=== PATIENT | male | born 1930 | race Caucasian/White ===

== ENCOUNTER 2017-04-21 17:11 | Inpatient (IN) ==
[2017-04-21 17:46] VITALS: BMI 25.8
[2017-04-21] MEDS ORDERED: NS FLUSH BAG 500ml IV PRN (17:50)
--- NOTE | 2017-04-21 18:02 | History & Physical Report ---
<Sarah Spain V - Last Filed: 04/21/17 17:53> History of Present Illness Date: 04/21/17 Chief complaint: Anemia, fatigue HPI: Acosta is a pleasant 87 yr old male who presented to his PCP Dr Kaiser today for dyspnea and fatigue. 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 Outpatientn laboratory workup was completed today reveling a hemoglobin of 7.7. Last reported Hgb from 09/2016 was 12. Other lab findings included Hematocrit 23.0, MCV 109, white count 7.7, platelet count 350. Chemistry panel did reveal elevation in sodium of 148, potassium 4.5, BUN 25, creatinine 1.4. Glucose was 155. Total bilirubin is elevated at 2.8. Initial troponin at that time was negative. Pro calcitonin was obtained that was negative and a urinalysis was obtained that was negative. Chest x-ray was obtained today that showed no acute cardiopulmonary findings. CT scan of the abdomen and pelvis is performed revealing no acute abdominal process. Chronic large amount of dense gallbladder sludge is noted. The lead EKG was obtained that showed a paced cardiac rhythm. Given his symptoms of fatigue/weakness, accompanied with decrease in hemoglobin and existing comorbidities, the hospitalist services were contacted and accepted patient for outpatient admission for further evaluation and treatment. It is expected the history will be less than 2 overnights. Old records are reviewed from hospitalization at [facility] in November 2015. At that time he was initially admitted for chest pain that was thought to be related to his asthma. He was found to have a in STEMI and underwent bypass procedure under the care of Dr. Vance. He was also found to be anemic and had a hematology workup by Dr.Quoc Gomez. He was diagnosed with warm antibody hemolytic anemia. He was stabilized and has been following in the outpatient setting with both Dr. Vance and Dr. Gomez. Acosta is seen today on initial arrival to [facility]. He is alert, oriented and pleasant. He notes that he has had progressive weakness, that is generalized over the past several weeks. He also reports that for the last 3 days he has had increased shortness of breath that he attributes to humidity and known history of asthma. Denies chest pain, GI complaints, melena or hemoptysis. Last saw Dr Khalil 10 days ago and was "doing fine". Follows with Dr Vance routinely. Review of Systems Comprehensive ROS: completed and no additional positive findings except those as stated - Constitutional Constitutional: Present: fatigue, weakness (generalized) - Respiratory Respiratory: Present: dyspnea, dyspnea on exertion PFSH Autoimmune hemolytic anemia Hypertension Dyslipidemia Coronary artery disease Ischemic cardiomyopathy Diabetes Asthma Pacemaker hypertension GERD Surgical History: CABG-bypass graft 4 with sternal plating,ORTIZ to LAD & OM1, distal circ to PDA 11/13/15-Dr. Romero. Umbilical hernia repair in 2005. Pacemaker placement-2008, Dr. Pillai (complete heart block). Bilateral eye surgery. Atarax extraction of left eye-2012. Colonoscopy-2013 (Dr. Bolanos) Family History: Further-emphysema Mother-CVA, at age 67 Brother-emphysema - Social History Smoking status: Never smoker Substance use type: does not use Alcohol intake frequency: holidays/special occasions only Current residence: Apartment/Private Home Social history: Primary care provider, Dr. Sana Kaiser [employer]-Dr. Manny Vance He does see Dr. Mojgan Mcdaniel for follow-up of pacemaker only Hematology, Dr. George Gomez Medications Home Medications Medication Instructions Recorded Confirmed Type Gemfibrozil 600 mg PO BID #0 10/31/14 04/21/17 History Acetaminophen [Mapap] 2 tab PO Q4H PRN #0 tab 01/09/16 04/21/17 History Aspirin [Low Dose Aspirin EC] 1 tab PO DAILY #30 tab 01/09/16 04/21/17 History Atorvastatin Calcium 1 tab PO DAILY #0 tab 01/09/16 04/21/17 History Bisoprolol Fumarate 0.5 tab PO DAILY #0 tab 01/09/16 04/21/17 History Budesonide Flexhaler [Pulmicort 1 - 2 puff INH BID #1 inhaler 01/09/16 04/21/17 History 180 Mcgflexhaler] Cyanocobalamin (Vitamin B-12) 1 tab PO DAILY #30 tab 01/09/16 04/21/17 History [Vitamin B-12] Docusate Sodium [Doc-Q-Lace] 1 cap PO BID #0 cap 01/09/16 04/21/17 History Ferrous Gluconate 1 tab PO BIDWM #0 tab 01/09/16 04/21/17 History Folic Acid 1 tab PO DAILY #0 tab 01/09/16 04/21/17 History Ibuprofen 1 tab PO Q6H PRN #0 tab 01/09/16 04/21/17 History Omeprazole 1 cap PO DAILY #0 cap 01/09/16 04/21/17 History Albuterol Sulfate [Proair Hfa] 2 puff INH Q6H PRN 04/21/17 04/21/17 History Albuterol Sulfate [Proair Hfa] 2 puff INH Q6H PRN 04/21/17 04/21/17 History Albuterol/Ipratropium [Duoneb] 3 ml INH QID PRN 04/21/17 04/21/17 History Budesonide 1 vial AEROSOL BID 04/21/17 04/21/17 History Metformin Xr 500 mg PO WS 04/21/17 04/21/17 History Miralax 17 gm PO PRN PRN 04/21/17 04/21/17 History Allergies Allergy/AdvReac Type Severity Reaction Status Date / Time No Known Drug Allergies AdvReac Unknown Verified 04/21/17 18:19 Exam Vital Signs: Temperature 97.3 F 04/21/17 17:36 Pulse Rate 67 04/21/17 17:36 Respiratory Rate 20 04/21/17 17:36 Blood Pressure 153/71 H 04/21/17 17:36 Pulse Oximetry 100 04/21/17 17:36 Oxygen Delivery Method Room Air Height/Weight/BMI: Height 1.78 m Weight 81.6 kg Body Mass Index 25.8 - Constitutional Present: no acute distress, well nourished, well developed - Routine HEENT Exam Eye: Present: EOMI, PERRL ENT: Present: mucous membranes moist, dentition normal - Routine Neck Exam Present: full ROM - Routine Respiratory Exam Present: CTA bilaterally (anterior), diminished air movement (the lateral bases) . Absent: wheezes - Routine Cardiovascular Exam Present: RRR, S1, S2, no murmur. Absent: murmur - Routine Abdominal Exam Present: soft, normoactive bowel sounds, non distended. Absent: tenderness - Routine Extremities Exam Present: pulses intact, normal capillary refill - Routine Back/Spine/Pelvis Exam Back/Spine: Present: full ROM - Routine Skin Exam Present: intact, dry, warm - Routine Neurological Exam Present: alert, oriented X3, moving all extremities CN 3-12 intact - Routine Psychiatric Exam Present: normal affect, normal thought process Assessment and Plan (1) Hemolytic anemia Current visit: Yes Status: Acute (2) Weakness Current visit: Yes Status: Acute DVT Prophylaxis: SCD's Resuscitation Status: Do Not Resuscitate Assessment and Plan: Impression Hemolytic anemia- hemoglobin on admission 7.7 Generalized weakness/fatigue Hypernatremia- sodium on admission 148 Elevated bilirubin Dyspnea Asthma Coronary artery disease Hypertension Pacemaker Hyperlipidemia Plan Plan is to admit patient to outpatient observation under care of Dr. Wallace for hemolytic anemia, generalized weakness and dyspnea. Patient did undergo outpatient laboratory studies under the care of Dr. Kaiser today including CBC, chemistry, urinalysis, pro calcitonin, troponin and EKG which were addressed in my history of present illness. At time of admission, we will obtain the following laboratory studies, reticulocyte profile, LDH, direct Lisa, type and cross blood. We will transfuse patient with 1 unit of packed red blood cells at this time. 1/2 NS at 75 ml/ hr for gently hydration given per natremia Will obtain serial troponins every 6 hours 3 to rule out cardiac ischemia. Given known history of coronary artery disease. Monitor patient on cardiac telemetry Initiate prednisone 1 mg/KG BID starting now (80mg). Will then discuss ongoing outpatient steroid treatment at time of discharge. Will recheck CBC and BMP are morning to follow blood counts, renal function and electrolytes. Did discuss advanced directives and patient does verbalize. He wishes to be do not resuscitate Will discuss further orders and plan of care with attending, Dr. Wallace. Home medications will need to be reviewed once reconciled. At time of discharge medical care will return to primary care provider Dr. Kaiser at [facility] and Home Course Summary Disclaimer: The visit summary below is not to be considered part of the above Progress Note. Hospital Course: 04/21/17 -Admission Impression Hemolytic anemia- hemoglobin on admission 7.7 Generalized weakness/fatigue Hypernatremia- sodium on admission 148 Elevated bilirubin Dyspnea Asthma Coronary artery disease Hypertension Pacemaker Hyperlipidemia Plan Plan is to admit patient to outpatient observation under care of Dr. Wallace for hemolytic anemia, generalized weakness and dyspnea. Patient did undergo outpatient laboratory studies under the care of Dr. Kaiser today including CBC, chemistry, urinalysis, pro calcitonin, troponin and EKG which were addressed in my history of present illness. At time of admission, we will obtain the following laboratory studies, reticulocyte profile, LDH, direct Lisa, type and cross blood. We will transfuse patient with 1 unit of packed red blood cells at this time. 1/2 NS at 75 ml/ hr for gently hydration given per natremia Will obtain serial troponins every 6 hours 3 to rule out cardiac ischemia. Given known history of coronary artery disease. Monitor patient on cardiac telemetry Initiate prednisone 1 mg/KG BID starting now (80mg). Will then discuss ongoing outpatient steroid treatment at time of discharge. Will recheck CBC and BMP are morning to follow blood counts, renal function and electrolytes. Did discuss advanced directives and patient does verbalize. He wishes to be do not resuscitate Will discuss further orders and plan of care with attending, Dr. Wallace. Home medications will need to be reviewed once reconciled. At time of discharge medical care will return to primary care provider Dr. Kaiser at [facility] <Dorys Wallace - Last Filed: 04/21/17 19:52> History of Present Illness Date: 04/21/17 [facility] Patient Stated Medical History Cataracts Yes: left eye Congestive Heart Failure Yes Hypertension Yes Myocardial Infarction Yes Asthma Yes Diabetes Mellitus Type 2 Yes: diet/oral med controlled Hiatal Hernia Yes Anemia Yes: antibody sensitivity Blood Transfusions Yes: chronic anemia Exam Vital Signs: Temperature 97.3 F 04/21/17 19:40 Pulse Rate 61 04/21/17 19:40 Respiratory Rate 16 04/21/17 19:40 Blood Pressure 122/61 04/21/17 19:40 Pulse Oximetry 98 04/21/17 19:40 Oxygen Delivery Method Room Air Height/Weight/BMI: Height 1.78 m Weight 81.6 kg Body Mass Index 25.8 Assessment and Plan (1) Hemolytic anemia Current visit: Yes Status: Acute (2) Weakness Current visit: Yes Status: Acute Assessment and Plan: I have independently evaluated and examined this patient. I reviewed the chart, the patient's history, and the LEAD ETL DEVELOPER/PA's documented findings as above. We discussed and formulated the assessment and plan as above with additions as below: Mr. Oro is an 87-year-old male with a history of warm antibody AIHA identified 17 months ago as described. He's been followed by Dr. George Troung and is tapered off of prednisone (note inclusion of prednisone on current medication list is incorrect). Over the past week he's developed increasing dyspnea/tightness in his chest similar to the symptoms he experienced prior to identification of hemolytic anemia in conjunction with generalized weakness and sense of heaviness around his body. He denies wheezing, cough, fevers, or chills. Laboratory findings consistent with relapse of AIHA were obtained earlier today and the patient is hospitalized to hopefully transfuse if compatible unit of blood can be identified. Troponin was obtained with lab work earlier today and was unremarkable and EKG in the office demonstrated ventricular pacemaker with left bundle. The patient is alert and able to provide historical information which corresponds to available records and history provided by Dr. Kaiser. Skin tone/color is normal Respirations are nonlabored, good airflow, no wheezing present. Cardiac rhythm regular Abdomen soft, bowel sounds present Extremities without edema Increased MCV, decreased hemoglobin, increased bilirubin compatible with hemolytic anemia. Direct Lisa, haptoglobin, reticulocyte count and direct/indirect bilirubin being obtained in addition to type and cross. Hope to transfuse 1 unit of packed cells to minimize symptoms in conjunction with resumption of prednisone 1 mg/kg tonight and again in a.m. Discussed with Dr. Kaiser and Dr. Gomez. Records from [facility] and the office reviewed. Outpatient labs reviewed. Chest x-ray unremarkable by my review and CT abdomen/pelvis without acute pathology although biliary sludge present and unchanged from the past (CT also reviewed by myself). Patient advises me that it took 3 days to find compatible blood for transfusion during his prior hospitalization due to antibodies. Hospital Course Summary Disclaimer: The visit summary below is not to be considered part of the above Progress Note.
[2017-04-21] MEDS: 1/2 NS 1,000 ML IV SCH (19:37)
[2017-04-21] MEDS: PredniSONE 20 MG TABLET PO SCH ×2 (19:37→22:15)
[2017-04-21] MEDS ORDERED: ALBUTEROL 2.5mg/3ml (0.083%) NEB IH PRN (21:03)
[2017-04-21] MEDS ORDERED: POLYETHYL GLYCOL 3350 17gm PACKET PO PRN (21:03)
[2017-04-21] MEDS ORDERED: ACETAMINOPHEN 325 MG TABLET PO PRN (21:03)
[2017-04-21] MEDS ORDERED: DiphenhydrAMINE 25 MG CAPSULE PO PRN (21:08)
[2017-04-22] MEDS: BUDESONIDE INH.SOLN 0.5mg/2ml NEB AEROSOL SCH ×2 (07:57→19:10)
[2017-04-22] MEDS: FOLIC ACID 1 MG TABLET PO SCH (08:29)
[2017-04-22] MEDS: OMEPRAZOLE 20 MG CAPSULE PO SCH (08:29)
[2017-04-22] MEDS: FERROUS GLUCONATE 324 MG TABLET PO SCH ×2 (08:29→17:41)
[2017-04-22] MEDS: GEMFIBROZIL 600 MG TABLET PO SCH ×2 (08:29→22:10)
[2017-04-22] MEDS: ASPIRIN *EC* 81 MG TABLET PO SCH (08:29)
[2017-04-22] MEDS: DOCUSATE SODIUM 100 MG CAPSULE PO SCH ×2 (08:29→22:10)
[2017-04-22] MEDS: 1/2 NS 1,000 ML IV SCH (08:30)
[2017-04-22] MEDS: PredniSONE 20 MG TABLET PO SCH (08:30)
--- NOTE | 2017-04-22 15:31 | Progress Note ---
<Sarah Spain V - Last Filed: 04/22/17 15:23> Subjective: Acosta is seen this morning up in the chair, talking with his family at the bedside. He is alert, oriented and pleasant. He verbalizes overall his breathing seems to be improved. He denies having any pain or GI concerns. Hemoglobin this morning 7.1 with hematocrit 21.1. Continues to wait on blood transfusion. Objective Vital signs: Temperature 96.2 F L 04/22/17 11:00 Pulse Rate 61 04/22/17 11:00 Respiratory Rate 16 04/22/17 11:00 Blood Pressure 112/65 04/22/17 11:00 Pulse Oximetry 98 04/22/17 11:00 Oxygen Delivery Method Room Air Height/Weight/BMI: Height 1.78 m Weight 81.8 kg Body Mass Index 25.8 - Constitutional Present: no acute distress, well nourished, well developed - Routine HEENT Exam Head: Present: normocephalic Eye: Present: EOMI, PERRL ENT: Present: mucous membranes moist, dentition normal - Routine Respiratory Exam Present: CTA bilaterally. Absent: wheezes - Routine Cardiovascular Exam Present: RRR, S1, S2. Absent: murmur - Routine Abdominal Exam Present: soft, normoactive bowel sounds, non distended. Absent: tenderness - Routine Extremities Exam Present: no edema, normal capillary refill - Routine Back/Spine/Pelvis Exam Back/Spine: Present: full ROM - Routine Skin Exam Present: intact, dry, warm - Routine Neurological Exam Present: alert, oriented X3, CN II-XII intact - Routine Lymphatic Exam Lymphatic: Absent: adenopathy - Routine Psychiatric Exam Present: normal affect, normal thought process Results - Labs CBC & Chem 7: 04/22/17 04:35 04/22/17 04:35 Assessment and Plan (1) Hemolytic anemia Current visit: Yes Status: Acute (2) Weakness Current visit: Yes Status: Acute Assessment and Plan: 04/22/17 Overall Acosta is stale and doing well. Tach to the [place] [place] this morning and was notified that blood is being prepared and will hopefully be at [facility] later today. Plan is to transfuse 1 unit of PRBC. 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 Patient does meet criteria for inpatient status. Patient changed at this time. He continues to wait on blood transfusion that is necessary. Continue with scheduled nebulizers and as needed. Given patient's history of asthma. Overall, he feels that his symptoms have improved. Overall blood sugars have been elevated, which is likely secondary to steroid use. He continues on prednisone 80 milligrams twice a day given autoimmune hemolytic anemia. Will continue to follow up daily labs. Will discuss further orders and plan of care with Dr Alvarez. Sepsis Assessment - Evaluation Sepsis screening result: No Definite Risk Hospital Course Summary Disclaimer: The visit summary below is not to be considered part of the above Progress Note. Hospital Course: 04/21/17 -Admission Impression Hemolytic anemia- hemoglobin on admission 7.7 Generalized weakness/fatigue Hypernatremia- sodium on admission 148 Elevated bilirubin Dyspnea Asthma Coronary artery disease Hypertension Pacemaker Hyperlipidemia Plan Plan is to admit patient to outpatient observation under care of Dr. Wallace for hemolytic anemia, generalized weakness and dyspnea. Patient did undergo outpatient laboratory studies under the care of Dr. Kaiser today including CBC, chemistry, urinalysis, pro calcitonin, troponin and EKG which were addressed in my history of present illness. At time of admission, we will obtain the following laboratory studies, reticulocyte profile, LDH, direct Lisa, type and cross blood. We will transfuse patient with 1 unit of packed red blood cells at this time. 1/2 NS at 75 ml/ hr for gently hydration given per natremia Will obtain serial troponins every 6 hours 3 to rule out cardiac ischemia. Given known history of coronary artery disease. Monitor patient on cardiac telemetry Initiate prednisone 1 mg/KG BID starting now (80mg). Will then discuss ongoing outpatient steroid treatment at time of discharge. Will recheck CBC and BMP are morning to follow blood counts, renal function and electrolytes. Did discuss advanced directives and patient does verbalize. He wishes to be do not resuscitate Will discuss further orders and plan of care with attending, Dr. Wallace. Home medications will need to be reviewed once reconciled. At time of discharge medical care will return to primary care provider Dr. Kaiser at [facility] 04/22/17 Tach to the [place] [place] this morning and was notified that blood is being prepared and will hopefully be at [facility] later today. Plan is to transfuse 1 unit of PRBC. 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 Patient does meet criteria for inpatient status. Patient changed at this time. He continues to wait on blood transfusion that is necessary. He continues on prednisone 80 milligrams twice a day given autoimmune hemolytic anemia. <AntonioSanaz - Last Filed: 04/22/17 17:25> Objective Vital signs: Temperature 97.0 F 04/22/17 16:05 Pulse Rate 71 04/22/17 16:05 Respiratory Rate 24 04/22/17 16:05 Blood Pressure 118/59 04/22/17 16:05 Pulse Oximetry 98 04/22/17 16:05 Oxygen Delivery Method Room Air Height/Weight/BMI: Height 1.78 m Weight 81.8 kg Body Mass Index 25.8 Results - Labs CBC & Chem 7: 04/22/17 04:35 04/22/17 04:35 Assessment and Plan (1) Hemolytic anemia Current visit: Yes Status: Acute (2) Weakness Current visit: Yes Status: Acute Assessment and Plan: 04/22/2017-I reviewed this chart, the patient history, and the DISTRICT ADMINISTRATIVE ASSISTANT's/PA's documented findings as above. We discussed and formulated the assessment and plan as above with the additions below.-Dr. Alvarez I seen and examined the patient this afternoon. He has not received his blood transfusion yet. I did talk to staff and our blood bank and [facility] [place] did find a "least incompatible unit that is type-specific". It wanted to speak with me prior to transfusing. He does have a "warm antibody" The patient is feeling well today. He denies any shortness of breath or chest pain. RT did start oxygen because of his anemia. He denies any lightheadedness when he gets up. He did state his vision is a little blurry but is not related to changes in position. This may be secondary to his hyperglycemia from steroids. He states he is eating and drinking well and has no complaints other than generalized weakness. On exam he is alert and oriented and in no acute distress. Chest is clear to auscultation. Cardiac vascular reveals a regular rate and rhythm. Abdomen is soft and nontender. Extremities are free of edema. Skin is warm and dry and without rashes. Regarding autoimmune hemolytic anemia, [facility] [place] was able to find "2 least incompatible units that were type-specific". I did call and talk with Dr. Nolan Khalil, the patient's roofer and at this time, since the patient is without chest pain, lightheadedness or shortness of breath he is recommending that we monitor him on steroids and hold off on transfusion. He recommends transfusing if the patient becomes symptomatic or if hemoglobin is less than 7. Dr. Wallace spoke with him this morning and at that time he recommended decreasing the prednisone dose to 30 mg by mouth twice a day. Coronary artery disease is stable. Blood sugars are elevated on high-dose steroids. Continue usual dose of metformin and sliding scale insulin. Hopefully blood sugars will not be as high on prednisone 30 mg twice a day Hypernatremia has resolved and We'll DC IV fluids. Recheck CBC and basic metabolic profile tomorrow. Hospital Course Summary Disclaimer: The visit summary below is not to be considered part of the above Progress Note. Addendum entered and electronically signed by Sarah Spain APRN 04/22/17 15 :39: Added sliding scale insulin for hyperglycemia.
[2017-04-22] MEDS: INSULIN ASPART 100unit/ml INJECTION SQ PRN ×2 (15:51→22:09)
[2017-04-22] MEDS: PredniSONE 10 MG TABLET PO SCH (17:44)
[2017-04-22] MEDS: ATORVASTATIN 20 MG TABLET PO SCH (22:09)
[2017-04-23] MEDS: OMEPRAZOLE 20 MG CAPSULE PO SCH (06:14)
[2017-04-23] MEDS: INSULIN ASPART 100unit/ml INJECTION SQ PRN ×4 (06:14→22:09)
[2017-04-23] MEDS ORDERED: DiphenhydrAMINE 25 MG CAPSULE PO ONE (08:02)
[2017-04-23] MEDS ORDERED: NS FLUSH BAG 500ml IV PRN (08:02)
[2017-04-23] MEDS ORDERED: ACETAMINOPHEN 325 MG TABLET PO ONE (08:04)
[2017-04-23] MEDS: FERROUS GLUCONATE 324 MG TABLET PO SCH ×2 (08:23→18:34)
[2017-04-23] MEDS: DOCUSATE SODIUM 100 MG CAPSULE PO SCH ×2 (08:23→22:08)
[2017-04-23] MEDS: METHYLPREDNISOLONE SOD SUCC 40mg/ml INJECTION IVP SCH ×3 (08:24→18:34)
[2017-04-23] MEDS: ASPIRIN *EC* 81 MG TABLET PO SCH (08:25)
[2017-04-23] MEDS: FOLIC ACID 1 MG TABLET PO SCH (08:25)
[2017-04-23] MEDS: GEMFIBROZIL 600 MG TABLET PO SCH ×2 (08:25→22:08)
--- NOTE | 2017-04-23 09:41 | Progress Note ---
Subjective: Meek is seen today in follow up. He states that this morning he is feeling well after having a restful sleep, however, last evening did have an episode in which he felt lightheaded and weak. States that he feels this is from minimal sleep the night before. His had some anxiety regarding ability to find blood for his transfusion. Overall, he feels that his asthma is well controlled and his breathing has been without effort. No chest pain, no GI complaints. Objective Vital signs: Temperature 96.5 F L 04/23/17 07:55 Pulse Rate 76 04/23/17 07:55 Respiratory Rate 16 04/23/17 04:00 Blood Pressure 125/69 04/23/17 07:55 Pulse Oximetry 98 04/23/17 07:55 Oxygen Delivery Method Room Air Height/Weight/BMI: Height 1.78 m Weight 77 kg Body Mass Index 25.8 - Constitutional Present: no acute distress, well nourished, well developed - Routine HEENT Exam Eye: Present: EOMI ENT: Present: mucous membranes moist, dentition normal - Routine Respiratory Exam Present: CTA bilaterally. Absent: wheezes - Routine Cardiovascular Exam Present: RRR, S1, S2. Absent: murmur - Routine Abdominal Exam Present: soft, normoactive bowel sounds, non distended. Absent: tenderness - Routine Extremities Exam Present: no edema, full ROM, normal capillary refill - Routine Back/Spine/Pelvis Exam Back/Spine: Present: full ROM - Routine Skin Exam Present: intact, dry, warm - Routine Neurological Exam Present: alert, oriented X3, CN II-XII intact - Routine Lymphatic Exam Lymphatic: Absent: adenopathy - Routine Psychiatric Exam Present: normal affect, normal thought process Results - Labs CBC & Chem 7: 04/23/17 04:41 04/23/17 04:41 Assessment and Plan (1) Hemolytic anemia Current visit: Yes Status: Acute (2) Weakness Current visit: Yes Status: Acute DVT Prophylaxis: SCD's Resuscitation Status: Do Not Resuscitate Assessment and Plan: 04/23/17 Unfortunately, this morning, Acosta his hemoglobin has dropped below 7 to 6.3. At this time we will go ahead and give him a packed red blood cell transfusion 1 unit. Will need to monitor very carefully for reaction. Given his significant antibodies. He did describe some lightheadedness last evening, however, this morning feels well. His vital signs have been stable. Blood pressure 125/69, pulse in the 70s. Continue with scheduled DuoNeb and Pulmicort treatments. In light of chronic asthma. Symptoms appear to be well controlled currently. Intended to monitor blood sugars, fasting BGM this morning. Currently on metformin 500 daily as well as sliding scale NovoLog. Steroids were changed to Solu-Medrol 60 grams IV every 8 hours. Will continue to follow routine labs. Case discussed with attending Dr Alvarez Sepsis Assessment - Evaluation Sepsis screening result: No Definite Risk Hospital Course Summary Disclaimer: The visit summary below is not to be considered part of the above Progress Note. Hospital Course: 04/21/17 -Admission Impression Hemolytic anemia- hemoglobin on admission 7.7 Generalized weakness/fatigue Hypernatremia- sodium on admission 148 Elevated bilirubin Dyspnea Asthma Coronary artery disease Hypertension Pacemaker Hyperlipidemia Plan Plan is to admit patient to outpatient observation under care of Dr. Wallace for hemolytic anemia, generalized weakness and dyspnea. Patient did undergo outpatient laboratory studies under the care of Dr. Kaiser today including CBC, chemistry, urinalysis, pro calcitonin, troponin and EKG which were addressed in my history of present illness. At time of admission, we will obtain the following laboratory studies, reticulocyte profile, LDH, direct Lisa, type and cross blood. We will transfuse patient with 1 unit of packed red blood cells at this time. 1/2 NS at 75 ml/ hr for gently hydration given per natremia Will obtain serial troponins every 6 hours 3 to rule out cardiac ischemia. Given known history of coronary artery disease. Monitor patient on cardiac telemetry Initiate prednisone 1 mg/KG BID starting now (80mg). Will then discuss ongoing outpatient steroid treatment at time of discharge. Will recheck CBC and BMP are morning to follow blood counts, renal function and electrolytes. Did discuss advanced directives and patient does verbalize. He wishes to be do not resuscitate Will discuss further orders and plan of care with attending, Dr. Wallace. Home medications will need to be reviewed once reconciled. At time of discharge medical care will return to primary care provider Dr. Kaiser at [facility] 04/22/17 [place] notified that blood is being prepared and will hopefully be [place] [facility] [place] Plan is to transfuse 1 unit of PRBC. 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 Patient does meet criteria for inpatient status. Patient changed at this time. He continues to wait on blood transfusion that is necessary. He continues on prednisone 80 milligrams twice a day given autoimmune hemolytic anemia. 04/23/17 Unfortunately, this morning, Acosta his hemoglobin has dropped below 7 to 6.3. At this time we will go ahead and give him a packed red blood cell transfusion 1 unit. Will need to monitor very carefully for reaction. Given his significant antibodies. He did describe some lightheadedness last evening, however, this morning feels well. His vital signs have been stable. Blood pressure 125/69, pulse in the 70s. Continue with scheduled DuoNeb and Pulmicort treatments. In light of chronic asthma. Symptoms appear to be well controlled currently. Intended to monitor blood sugars, fasting BGM this morning. Currently on metformin 500 daily as well as sliding scale NovoLog. Steroids were changed to Solu-Medrol 60 grams IV every 8 hours. Will continue to follow routine labs. Case discussed with attending Dr Alvarez
[2017-04-23] MEDS: BUDESONIDE INH.SOLN 0.5mg/2ml NEB AEROSOL SCH ×2 (09:54→19:11)
[2017-04-23] MEDS: ALBUTEROL/IPRATROPIUM 2.5mg-0.5mg/3ml NEB INH PRN ×2 (11:07→19:11)
[2017-04-23] MEDS: PredniSONE 10 MG TABLET PO SCH (14:05)
--- NOTE | 2017-04-23 17:59 | History & Physical Report ---
- History and Physical History and Physical: Please see dictation of progress note from 04/23/2017 by my nurse practitioner Sarah Spain. I am able to read the progress note that not able to sign it due to computer issues. This is my addendum to that progress note. 04/23/2017-I reviewed this chart, the patient history, and the INSPECTOR SUBASSEMBLY's/PA's documented findings as above. We discussed and formulated the assessment and plan as above with the additions below.-Dr. Alvarez I did see and examine the patient this morning. He stated he was a little lightheaded last night and felt weak at feels a little better this morning. He denies any chest pain or shortness of breath at rest. He feels mildly short of breath with activity. He is eating and drinking well. He has had no unusual bleeding. Hemoglobin was down again today to 6.3. I did call and talk with Dr. Gomez and he recommended transfusion of 1 unit of blood. He also recommended starting IV Solu-Medrol and stopping oral prednisone. The patient was agreeable to this plan. On exam the patient was alert and in no acute distress. Chest is clear to auscultation. Cardiovascular reveals a regular rate and rhythm. Abdomen is soft and nontender. Extremities are free of edema. The patient was given 1 unit of blood and started on IV Solu-Medrol. Post transfusion, the patient stated he was feeling well and had no complaints. Hemoglobin improved to 8.0. Vital signs are stable. Blood sugars have been elevated, secondary to steroids. We'll continue sliding ill insulin. May need to increase dosage.
[2017-04-23] MEDS: ATORVASTATIN 20 MG TABLET PO SCH (22:08)
[2017-04-24] MEDS: METHYLPREDNISOLONE SOD SUCC 40mg/ml INJECTION IVP SCH ×2 (01:35→08:23)
[2017-04-24] MEDS: OMEPRAZOLE 20 MG CAPSULE PO SCH (06:35)
[2017-04-24] MEDS: INSULIN ASPART 100unit/ml INJECTION SQ PRN ×4 (06:36→20:28)
[2017-04-24] MEDS: FOLIC ACID 1 MG TABLET PO SCH (08:24)
[2017-04-24] MEDS: ASPIRIN *EC* 81 MG TABLET PO SCH (08:24)
[2017-04-24] MEDS: FERROUS GLUCONATE 324 MG TABLET PO SCH ×2 (08:24→17:34)
[2017-04-24] MEDS: GEMFIBROZIL 600 MG TABLET PO SCH ×2 (08:24→20:28)
[2017-04-24] MEDS: DOCUSATE SODIUM 100 MG CAPSULE PO SCH ×2 (08:24→20:28)
[2017-04-24] MEDS: BUDESONIDE INH.SOLN 0.5mg/2ml NEB AEROSOL SCH ×2 (08:24→20:47)
--- NOTE | 2017-04-24 12:30 | Progress Note ---
<Alicia Yang - Last Filed: 04/24/17 12:27> Subjective: Acosta states that he feels much better. He is still a bit weak in general, but denies SOA, palpitations, or dizziness. He hasn't been out of bed much today but went for a walk last night. He denies any nausea, vomiting, or diarrhea and his appetite has been very good. Objective Vital signs: Temperature 97.9 F 04/24/17 08:00 Pulse Rate 66 04/24/17 08:00 Respiratory Rate 16 04/24/17 08:26 Blood Pressure 125/66 04/24/17 08:00 Pulse Oximetry 98 04/24/17 08:26 Oxygen Delivery Method Room Air Height/Weight/BMI: Height 1.78 m Weight 82.6 kg Body Mass Index 25.8 - Constitutional Present: no acute distress, well nourished, well developed - Routine HEENT Exam Eye: Present: PERRL. Absent: scleral injection ENT: Present: mucous membranes moist, oropharynx clear - Routine Respiratory Exam Present: CTA bilaterally - Routine Cardiovascular Exam Present: RRR, S1, S2 - Routine Abdominal Exam Present: soft, normoactive bowel sounds, non distended, non tender - Routine Extremities Exam Present: no edema, pulses intact, normal capillary refill - Routine Back/Spine/Pelvis Exam Back/Spine: Present: full ROM - Routine Musculoskeletal Exam Musculoskeletal: Present: no clubbing or cyanosis, moving extremities well - Routine Skin Exam Present: intact, warm - Routine Neurological Exam Present: alert, oriented X3, CN II-XII intact - Routine Psychiatric Exam Present: normal affect, normal thought process, cooperative Results - Labs CBC & Chem 7: 04/24/17 03:59 04/24/17 03:59 Assessment and Plan (1) Hemolytic anemia Current visit: Yes Status: Acute (2) Weakness Current visit: Yes Status: Acute GI Prophylaxis: other (omeprazole) Resuscitation Status: Do Not Resuscitate Assessment and Plan: Assessment Hemolytic anemia- hemoglobin on admission 7.7; decreased to 6.3, and he was transfused 1U PRBC on 02/21/17. Generalized weakness/fatigue Hypernatremia- sodium on admission 148 - resolved Elevated bilirubin Dyspnea - resolved Asthma Coronary artery disease Hypertension Pacemaker Hyperlipidemia Plan Hgb 7.7 and his symptoms are improving. Encourage activity today. Hyperglycemia secondary to steroids - continue SSI & Metformin. Dr. Alvarez has stopped IV steroids and started oral steroids. Monitor BUN - increased today to 42. Cr. stable. Discussed with attending - possible DC soon if hgb remains stable while being off IV steroids. Sepsis Assessment - Evaluation Sepsis screening result: No Definite Risk Hospital Course Summary Disclaimer: The visit summary below is not to be considered part of the above Progress Note. Hospital Course: 04/21/17 -Admission Impression Hemolytic anemia- hemoglobin on admission 7.7 Generalized weakness/fatigue Hypernatremia- sodium on admission 148 Elevated bilirubin Dyspnea Asthma Coronary artery disease Hypertension Pacemaker Hyperlipidemia Plan Plan is to admit patient to outpatient observation under care of Dr. Wallace for hemolytic anemia, generalized weakness and dyspnea. Patient did undergo outpatient laboratory studies under the care of Dr. Kaiser today including CBC, chemistry, urinalysis, pro calcitonin, troponin and EKG which were addressed in my history of present illness. At time of admission, we will obtain the following laboratory studies, reticulocyte profile, LDH, direct Lisa, type and cross blood. We will transfuse patient with 1 unit of packed red blood cells at this time. 1/2 NS at 75 ml/ hr for gently hydration given per natremia Will obtain serial troponins every 6 hours 3 to rule out cardiac ischemia. Given known history of coronary artery disease. Initiate prednisone 1 mg/KG BID starting now (80mg). Will then discuss ongoing outpatient steroid treatment at time of discharge. At time of discharge medical care will return to primary care provider Dr. Kaiser at [facility] 04/22/17 [place] notified that blood is being prepared and will hopefully be at [facility] later today. 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 Patient does meet criteria for inpatient status. He continues on prednisone 80 milligrams twice a day given autoimmune hemolytic anemia. 04/23/17 hemoglobin has dropped below 7 to 6.3. PRBC transfusion x1. He did describe some lightheadedness last evening, however, this morning feels well. His vital signs have been stable. Intended to monitor blood sugars, fasting BGM this morning. Currently on metformin 500 daily as well as sliding scale NovoLog. Steroids were changed to Solu-Medrol 60 grams IV every 8 hours. 04/24/17 Hgb 7.7 and his symptoms are improving. Dr. Alvarez has stopped IV steroids and started oral steroids. <AntonioSanaz - Last Filed: 04/24/17 15:02> Objective Vital signs: Temperature 97.9 F 04/24/17 08:00 Pulse Rate 66 04/24/17 08:00 Respiratory Rate 16 04/24/17 08:26 Blood Pressure 125/66 04/24/17 08:00 Pulse Oximetry 98 04/24/17 08:26 Oxygen Delivery Method Room Air Height/Weight/BMI: Height 1.78 m Weight 82.6 kg Body Mass Index 25.8 Results - Labs CBC & Chem 7: 04/24/17 03:59 04/24/17 03:59 Assessment and Plan (1) Hemolytic anemia Current visit: Yes Status: Acute (2) Weakness Current visit: Yes Status: Acute Assessment and Plan: 04/24/2017-I reviewed this chart, the patient history, and the LENDING ACTIVITIES SUPERVISOR's/PA's documented findings as above. We discussed and formulated the assessment and plan as above with the additions below.-Dr. Alvarez The patient was seen in his room earlier today. He stated that he is feeling okay. He denies any chest pain. He feels mildly short of breath if he walks a long distance. On exam he is alert and in no acute distress. Chest is clear to auscultation. Cardiovascular shows a regular rate and rhythm. Abdomen is soft and nontender. I did call and talk with Dr. Juancarlos Gomez and discussed lab work today and patient symptoms. He recommended stopping IV steroids and starting oral steroids prednisone 40 mg by mouth twice a day. He stated his hemoglobin was stable tomorrow patient could discharge to home. He would need a slow taper of steroids over 6 weeks, and Dr. Gomez would want to see him back in one week. I discussed these recommendations with the patient as well and he is in agreement. Hospital Course Summary Disclaimer: The visit summary below is not to be considered part of the above Progress Note.
[2017-04-24] MEDS: PredniSONE 20 MG TABLET PO SCH ×2 (14:30→17:33)
[2017-04-24] MEDS: ATORVASTATIN 20 MG TABLET PO SCH (20:28)
[2017-04-25] MEDS: OMEPRAZOLE 20 MG CAPSULE PO SCH (05:38)
[2017-04-25] MEDS: INSULIN ASPART 100unit/ml INJECTION SQ PRN ×3 (06:41→15:34)
[2017-04-25 07:30] VITALS: BP 140/74; TEMP 96.6
[2017-04-25] MEDS: PredniSONE 20 MG TABLET PO SCH (08:43)
[2017-04-25] MEDS: DOCUSATE SODIUM 100 MG CAPSULE PO SCH (08:43)
[2017-04-25] MEDS: ASPIRIN *EC* 81 MG TABLET PO SCH (08:43)
[2017-04-25] MEDS: FERROUS GLUCONATE 324 MG TABLET PO SCH (08:44)
[2017-04-25] MEDS: GEMFIBROZIL 600 MG TABLET PO SCH (08:44)
[2017-04-25] MEDS: FOLIC ACID 1 MG TABLET PO SCH (08:44)
[2017-04-25] MEDS: BUDESONIDE INH.SOLN 0.5mg/2ml NEB AEROSOL SCH (09:05)
[2017-04-25 09:10] VITALS: RESP 12; O2SAT 98
[2017-04-25 10:37] VITALS: PULSE 60
--- NOTE | 2017-04-25 12:58 | Discharge Instructions ---
Discharge Plan - Med Rec/Dispo Referrals/Follow Up: George Gomez MD [Physician] - 1 Week Sana Kaiser MD [Family Provider] - (follow up with her this week.) Additional Instructions: go to Dr Kaiser's office Wednesday (tomorrow) for lab work. Take lab prescription with you. Results will be faxed to Dr Juancarlos Gomez. Get up slowly after sitting or lying down Eat a low sugar diet Continue on prednisone at this same dose until you see Dr Gomez. He may decide to adjust dose when he sees you. Your metformin will increase to 2 tablets with supper to help with high blood sugars. Prescriptions: New PredniSONE [Deltasone] 40 mg PO BIDWM #90 tablet Metformin Xr [Glucophage Xr] 500 mg PO WS #60 tablet Continue Omeprazole 1 cap PO DAILY #0 cap Docusate Sodium [Doc-Q-Lace] 1 cap PO BID #0 cap Folic Acid 1 tab PO DAILY #0 tab Albuterol Sulfate [Proair Hfa] 2 puff INH Q6H PRN PRN Reason: Shortness Of Air/Wheezing Albuterol Sulfate [Proair Hfa] 2 puff INH Q6H PRN PRN Reason: Shortness Of Air/Wheezing Albuterol/Ipratropium [Duoneb] 3 ml INH QID PRN PRN Reason: Asthma Miralax 17 gm PO PRN PRN PRN Reason: Constipation Budesonide 1 vial AEROSOL BID Gemfibrozil 600 mg PO BID #0 Acetaminophen [Mapap] 2 tab PO Q4H PRN #0 tab PRN Reason: Pain Budesonide Flexhaler [Pulmicort 180 Mcgflexhaler] 1 - 2 puff INH BID #1 inhaler Cyanocobalamin (Vitamin B-12) [Vitamin B-12] 1 tab PO DAILY #30 tab Atorvastatin Calcium 1 tab PO DAILY #0 tab Bisoprolol Fumarate 0.5 tab PO DAILY #0 tab Ferrous Gluconate 1 tab PO BIDWM #0 tab Discontinued Ibuprofen 1 tab PO Q6H PRN #0 tab PRN Reason: PAIN Aspirin [Low Dose Aspirin EC] 1 tab PO DAILY #30 tab Metformin Xr 500 mg PO WS Discharge Instructions/Outpatient Orders: Final Provider Discharge Instructions Location: Determined By Patient - Disposition 01 Discharged Home, Self-Care
--- NOTE | 2017-04-25 13:25 | Discharge Summary ---
Discharge Information Date of admission: 04/22/17 13:24 Attending Physician: Sanaz Alvarez MD Primary care physician: Sana Kaiser MD - Discharge Diagnosis Discharge Diagnosis: Autoimmune hemolytic anemia Generalized weakness and fatigue Hypernatremia-resolved Elevated bilirubin dyspnea Asthma Stable coronary artery disease hypertension - Laboratory Labs: 04/25/17 04:06 04/24/17 03:59 Laboratory Tests 04/21/17 04/21/17 04/21/17 18:13 18:13 19:48 Hgb Sodium Potassium Chloride Anion Gap BUN Creatinine GFR Calculation BUN/Creatinine Ratio Glucose Calculated Osmolality Calcium Total Bilirubin Conjugated Bilirubin 0.00 Unconjugated Bilirubin 1.80 AST ALT Alkaline Phosphatase Lactate Dehydrogenase 679 H Troponin I < 0.012 < 0.012 Total Protein Albumin Globulin Albumin/Globulin Ratio 04/22/17 04/22/17 04/23/17 04:35 04:35 04:41 Hgb 7.1 L 6.3 L D Sodium 143 Potassium 4.6 Chloride 109 H Anion Gap 14 BUN 24.0 H Creatinine 1.3 GFR Calculation 52 BUN/Creatinine Ratio 19 Glucose 205 H Calculated Osmolality 285 H Calcium 8.9 Total Bilirubin 2.50 H Conjugated Bilirubin Unconjugated Bilirubin AST 20 ALT 35 Alkaline Phosphatase 66 Lactate Dehydrogenase Troponin I Total Protein 6.5 Albumin 4.1 Globulin 2.4 Albumin/Globulin Ratio 1.7 04/23/17 04/23/17 04/23/17 13:25 18:48 23:41 Hgb 8.0 L D Sodium Potassium Chloride Anion Gap BUN Creatinine GFR Calculation BUN/Creatinine Ratio Glucose Calculated Osmolality Calcium Total Bilirubin Conjugated Bilirubin Unconjugated Bilirubin AST ALT Alkaline Phosphatase Lactate Dehydrogenase Troponin I < 0.012 < 0.012 Total Protein Albumin Globulin Albumin/Globulin Ratio 04/24/17 04/25/17 03:59 04:06 Hgb 7.7 L 7.4 L Sodium Potassium Chloride Anion Gap BUN Creatinine GFR Calculation BUN/Creatinine Ratio Glucose Calculated Osmolality Calcium Total Bilirubin Conjugated Bilirubin Unconjugated Bilirubin AST ALT Alkaline Phosphatase Lactate Dehydrogenase Troponin I Total Protein Albumin Globulin Albumin/Globulin Ratio History of Present Illness HPI: Acosta is a pleasant 87 yr old male who presented to his PCP Dr Kaiser today for dyspnea and fatigue. 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 Outpatientn laboratory workup was completed today reveling a hemoglobin of 7.7. Last reported Hgb from 09/2016 was 12. Other lab findings included Hematocrit 23.0, MCV 109, white count 7.7, platelet count 350. Chemistry panel did reveal elevation in sodium of 148, potassium 4.5, BUN 25, creatinine 1.4. Glucose was 155. Total bilirubin is elevated at 2.8. Initial troponin at that time was negative. Pro calcitonin was obtained that was negative and a urinalysis was obtained that was negative. Chest x-ray was obtained today that showed no acute cardiopulmonary findings. CT scan of the abdomen and pelvis is performed revealing no acute abdominal process. Chronic large amount of dense gallbladder sludge is noted. The lead EKG was obtained that showed a paced cardiac rhythm. Given his symptoms of fatigue/weakness, accompanied with decrease in hemoglobin and existing comorbidities, the hospitalist services were contacted and accepted patient for outpatient admission for further evaluation and treatment. It is expected the history will be less than 2 overnights. Old records are reviewed from hospitalization at [facility] in November 2015. At that time he was initially admitted for chest pain that was thought to be related to his asthma. He was found to have a in STEMI and underwent bypass procedure under the care of Dr. Vance. He was also found to be anemic and had a hematology workup by Dr.Quoc Gomez. He was diagnosed with warm antibody hemolytic anemia. He was stabilized and has been following in the outpatient setting with both Dr. Vance and Dr. Gomez. Acosta is seen today on initial arrival to [facility]. He is alert, oriented and pleasant. He notes that he has had progressive weakness, that is generalized over the past several weeks. He also reports that for the last 3 days he has had increased shortness of breath that he attributes to humidity and known history of asthma. Denies chest pain, GI complaints, melena or hemoptysis. Last saw Dr Khalil 10 days ago and was "doing fine". Follows with Dr Vance routinely. Objective Vital signs: Temperature 96.6 F L 04/25/17 07:29 Pulse Rate 60 04/25/17 08:00 Respiratory Rate 12 04/25/17 09:06 Blood Pressure 140/74 H 04/25/17 07:29 Pulse Oximetry 98 04/25/17 09:06 Oxygen Delivery Method Room Air Height/Weight/BMI: Height 1.78 m Weight 82 kg Body Mass Index 25.8 Comments: On the day of discharge, the patient is feeling well. He denies any lightheadedness or shortness of breath. Chest is clear to auscultation. Cardiovascular reveals regular rate and rhythm. Abdomen is soft and nontender. Extremities are free of edema. Vital signs are stable. Hospital Course This is a general summary of the patient's hospital course. For more details refer to the complete medical record. Hospital course: The patient was admitted on 04/21/2017 with anemia, fatigue and generalized weakness. He was found to have a hemoglobin of 7.7. He had a previous history of autoimmune hemolytic anemia and followed with Dr. Juancarlos Gomez. Dr. Gomez was notified and he recommended initiating steroids. We did type and cross 2 units and blood came from the [place] the following day. At that time the patient's hemoglobin was 7.1 after IV fluids and the patient was feeling better. After discussion with Dr. Gomez, we elected to hold off on transfusion. The following day the hemoglobin was 6.3 and at that time Dr. Gomez did recommend transfusion of 1 unit. The following day hemoglobin was up to 7.7. The patient had been on IV steroids and Dr. Gomez recommended changing to oral steroids. On the day of discharge, hemoglobin is 7.4. The patient is feeling well and has no chest pain or shortness of breath. Fatigue has improved. Dr. Gomez was called and he recommended continuing on the same dose of oral steroids. He was agreeable with discharge today with close follow-up to have CBC as an outpatient tomorrow, and this will be faxed to Dr Gomez at [phone]. Patient did have an increase in blood sugars secondary to steroids and we will increase his metformin XR to 1000 mg with supper. Because of the patient's anemia, will hold ibuprofen at this time. Dr. Gomez and/or Dr. Kaiser can decide when and if this should be restarted. I will have the patient stay on aspirin 81 mg once daily at this time. On 04/25/2017 the patient appeared stable for dismissal to home. Time spent with patient: greater than 35 minutes Discharge Plan - Med Rec/Dispo Referrals/Follow Up: Sana Kaiser MD [Family Provider] - (follow up with her this week.) George Gomez MD [Physician] - 1 Week Additional Instructions: go to Dr Kaiser's office Wednesday (tomorrow) for lab work. Take lab prescription with you. Results will be faxed to Dr Juancarlos Gomez. Get up slowly after sitting or lying down Eat a low sugar diet Continue on prednisone at this same dose until you see Dr Gomez. He may decide to adjust dose when he sees you. Your metformin will increase to 2 tablets with supper to help with high blood sugars. Prescriptions: New PredniSONE [Deltasone] 40 mg PO BIDWM #90 tablet Metformin Xr [Glucophage Xr] 500 mg PO WS #60 tablet Continue Omeprazole 1 cap PO DAILY #0 cap Docusate Sodium [Doc-Q-Lace] 1 cap PO BID #0 cap Folic Acid 1 tab PO DAILY #0 tab Albuterol Sulfate [Proair Hfa] 2 puff INH Q6H PRN PRN Reason: Shortness Of Air/Wheezing Albuterol Sulfate [Proair Hfa] 2 puff INH Q6H PRN PRN Reason: Shortness Of Air/Wheezing Albuterol/Ipratropium [Duoneb] 3 ml INH QID PRN PRN Reason: Asthma Miralax 17 gm PO PRN PRN PRN Reason: Constipation Budesonide 1 vial AEROSOL BID Gemfibrozil 600 mg PO BID #0 Acetaminophen [Mapap] 2 tab PO Q4H PRN #0 tab PRN Reason: Pain Budesonide Flexhaler [Pulmicort 180 Mcgflexhaler] 1 - 2 puff INH BID #1 inhaler Cyanocobalamin (Vitamin B-12) [Vitamin B-12] 1 tab PO DAILY #30 tab Atorvastatin Calcium 1 tab PO DAILY #0 tab Bisoprolol Fumarate 0.5 tab PO DAILY #0 tab Ferrous Gluconate 1 tab PO BIDWM #0 tab Discontinued Ibuprofen 1 tab PO Q6H PRN #0 tab PRN Reason: PAIN Aspirin [Low Dose Aspirin EC] 1 tab PO DAILY #30 tab Metformin Xr 500 mg PO WS Discharge Instructions/Outpatient Orders: Final Provider Discharge Instructions Location: Determined By Patient
== END 2017-04-25 15:45 | disposition home or self-care (01) | DRG 812 ==
LOC: MED
PROVIDERS: ADMIT Internal Medicine; ATTEND Internal Medicine

== ENCOUNTER 2017-09-27 14:36 | Inpatient (IN) ==
[~2017-09-27 14:36] MED LIST: DiphenhydrAMINE 25 MG CAPSULE PO ONE; OXYMETAZOLINE 0.05% NASAL SPRAY 15ml EA NOSTRIL ONE
[2017-09-27] MEDS ORDERED: SALINE FLUSH 10ml SYRINGE IVF PRN (14:40)
[2017-09-27] MEDS ORDERED: NS 100 ML ONE (15:32)
[2017-09-27] MEDS ORDERED: IOHEXOL 300mg/ml 100ml INJECTION ONE (15:32)
[2017-09-27] MEDS ORDERED: SALINE FLUSH 10ml SYRINGE ONE (15:32)
--- NOTE | 2017-09-27 16:13 | Emergency Department Report ---
General Adult HPI - General Chief complaint: Medical Emergency Stated complaint: cough Time Seen by Provider: 09/27/17 14:40 Source: patient, RN notes reviewed, old records reviewed Mode of arrival: ambulatory Limitations: no limitations - History of Present Illness HPI narrative: See prior note from today for hx to this point. Pt called back from home for evaluation of free air under pts diaphragm, incidentally found on pts CXR for initial evaluation. Pt has no sx related to his pneumoperitoneum. Does have a h/o diverticulitis. MD complaint: Pneumoperitoneum Onset (ago): unknown - Related Data Home Medications Medication Instructions Recorded Confirmed Atorvastatin Calcium 20 mg PO DAILY #0 tab 01/09/16 09/27/17 Budesonide Flexhaler [Pulmicort 1 - 2 puff INH BID #1 inhaler 01/09/16 09/27/17 180 Mcgflexhaler] Ferrous Gluconate 324 mg PO BIDWM #0 tab 01/09/16 09/27/17 Albuterol Sulfate [Proair Hfa] 2 puff INH Q6H PRN 04/21/17 09/27/17 Albuterol/Ipratropium [Duoneb] 3 ml INH QID PRN 04/21/17 09/27/17 Budesonide 1 vial AEROSOL BID 04/21/17 09/27/17 Acetaminophen 650 mg PO Q4H PRN 09/23/17 09/27/17 Bisoprolol [Zebeta] 2.5 mg PO DAILY 09/23/17 09/27/17 Cyanocobalamin (Vitamin B-12) 1 tab PO DAILY 09/23/17 09/27/17 [Vitamin B-12] Docusate Sodium [Colace] 1 cap PO BID 09/23/17 09/27/17 Folic Acid [Folate] 1 tab PO DAILY 09/23/17 09/27/17 Gemfibrozil [Lopid] 600 mg PO BID 09/23/17 09/27/17 Metformin XR [Glucophage Xr] 1,000 mg PO WS 09/23/17 09/27/17 Omeprazole [Prilosec] 20 mg PO DAILY 09/23/17 09/27/17 PEG 3350 17gm PACKET [Miralax] 17 gm PO DAILY PRN 09/23/17 09/27/17 Promethazine + Cod Liq [Phenergan 5 ml PO Q6H PRN 09/23/17 09/27/17 + Codeine] Previous Rx's Medication Instructions Recorded Benzonatate [Tessalon Perles] 200 mg PO TID PRN #20 cap 09/23/17 Oseltamivir Cap [Tamiflu] 75 mg PO BID #10 cap 09/23/17 PredniSONE [Deltasone] 60 mg PO WB #12 tab 09/23/17 Allergies Allergy/AdvReac Type Severity Reaction Status Date / Time No Known Drug Allergies AdvReac Unknown Verified 09/27/17 10:31 Review of Systems All systems: reviewed and negative except as stated Constitutional: Reports: as per HPI, other (See prior note) PFSH Patient Stated Medical History Cataracts Yes: left eye Congestive Heart Failure Yes Hypertension Yes Myocardial Infarction Yes Asthma Yes Diabetes Mellitus Type 2 Yes: diet/oral med controlled Hiatal Hernia Yes Anemia Yes: antibody sensitivity Blood Transfusions Yes: chronic anemia Surgical History: CABG-bypass graft 4 with sternal plating,ORTIZ to LAD & OM1, distal circ to PDA 11/13/15-Dr. Romero. Umbilical hernia repair in 2005. Pacemaker placement-2008, Dr. Pillai (complete heart block). Bilateral eye surgery. Atarax extraction of left eye-2012. Colonoscopy-2013 (Dr. Bolanos) - Social History Smoking status: Never smoker Physical Exam See prior note - PE unchanged from prior. - Limitations Limitations: no limitations - General General appearance: alert, in no apparent distress, obese Course - Consultations Consultation #1: Dr. Stanton: Time: 16:26 Vital Signs Temperature 98.0 F 09/27/17 14:40 Respiratory Rate 24 09/27/17 14:40 Temperature 98.0 F 09/27/17 14:41 Pulse Rate 62 09/27/17 15:45 Respiratory Rate 24 09/27/17 14:41 Blood Pressure 144/70 H 09/27/17 15:30 Pulse Oximetry 95 09/27/17 15:45 Medical Decision Making - [facility] Narrative Medical decision making narrative: Dr. Stanton presented to ER and evaluated pt. Will take pt to surgery this evening for pneumoperitoneum. - Differential Diagnosis Spont bact peritonitis, diverticulitis, colitis, sepsis, luminal rupture - Medical Records Medical records reviewed: Yes: I reviewed the patient's medical records. - Lab Data Lab results reviewed: Yes: I reviewed the patient's lab results. Result diagrams: 09/27/17 15:09 09/27/17 15:09 Lab Results 09/27/17 09/27/17 Range/Units 15:09 15:09 WBC 7.3 (4.5-11.0) T/MM3 RBC 4.06 L (4.50-5.90) M/MM3 Hgb 12.2 L (13.5-17.5) GM/DL Hct 37.2 L (41-53) % MCV 91.6 (80-100) UM3 MCH 30.0 (26-34) UUG MCHC 32.8 (31-37) GM/DL RDW Std Deviation 46.9 (36.9-50.2) FL Plt Count 293 (130-400) T/MM3 MPV 10.0 (9.4-12.4) UM3 Immature Gran % (Auto) 0.3 (0.0-0.5) % Neut % (Auto) 69.9 H (33-66) % Lymph % (Auto) 19.4 L (23-45) % Jackson % (Auto) 10.3 H (0-9.0) % Eos % (Auto) 0.1 (0-4) % Baso % (Auto) 0.0 (0-2) % Neut # (Auto) 5.1 (1.8-7.7) T/MM3 Lymph # (Auto) 1.4 (1-4.8) T/MM3 Jackson # (Auto) 0.8 (0-0.8) T/MM3 Eos # (Auto) 0.0 (0-0.5) T/MM3 Baso # (Auto) 0.0 (0-0.2) T/MM3 Abs Immat Gran (auto) 0.02 (0.00-0.03) T/MM3 Turbidity < 20 (0-20) Sodium 144 (134-144) MEQ/L Potassium 3.9 (3.6-5) MEQ/L Chloride 107 (98-107) MEQ/L Carbon Dioxide 24 (22-30) MEQ/L Anion Gap 13 (5-15) MEQ/L BUN 25.0 H (9-20) MG/DL Creatinine 1.2 (0.8-1.5) MG/DL GFR Calculation 58 BUN/Creatinine Ratio 21 (6-26) RATIO Glucose 269 H (75-110) MG/DL Calculated Osmolality 290 H (261-280) MOSM/KG Calcium 9.0 (8.4-10.2) MG/DL Total Bilirubin 0.30 (0.20-1.30) MG/DL Icterus Index < 2 (0-7) AST 17 (17-59) U/L ALT 24 (21-72) U/L Alkaline Phosphatase 59 (38-126) U/L Total Protein 6.8 (6.3-8.2) G/DL Albumin 4.3 (3.5-5.0) G/DL Globulin 2.5 (2.4-3.6) G/DL Albumin/Globulin Ratio 1.7 (1.1-2.2) RATIO Lipase 89 (23-300) U/L Specimen Hemolysis < 15 (0-25) - Radiology Data Radiology results reviewed: Yes: I reviewed the patient's radiology results. CT Abd/pelv: Impression: 1. Patient demonstrates free intraperitoneal air. The exact source is somewhat indeterminant although there are numerous diverticula in the distal descending and sigmoid colon and there are some small air collections near the duodenal C-loop. 2. Considerable debris in the gallbladder although no biliary ductal dilatation seen. 3. Findings called ordering ER clinician when study provided as a critical result. Disposition Clinical Impression: Pneumoperitoneum, Influenza, Weakness Disposition: 02 To [facility] Print Language: Macedonian Condition: Stable Prescriptions: No Action Albuterol Sulfate [Proair Hfa] 2 puff INH Q6H PRN PRN Reason: Shortness Of Air/Wheezing Albuterol/Ipratropium [Duoneb] 3 ml INH QID PRN PRN Reason: Asthma Budesonide 1 vial AEROSOL BID Promethazine + Cod Liq [Phenergan + Codeine] 5 ml PO Q6H PRN PRN Reason: Cough Bisoprolol [Zebeta] 2.5 mg PO DAILY Acetaminophen 650 mg PO Q4H PRN PRN Reason: Pain Cyanocobalamin (Vitamin B-12) [Vitamin B-12] 1 tab PO DAILY Docusate Sodium [Colace] 1 cap PO BID Folic Acid [Folate] 1 tab PO DAILY Gemfibrozil [Lopid] 600 mg PO BID Benzonatate [Tessalon Perles] 200 mg PO TID PRN #20 cap PRN Reason: Cough Oseltamivir Cap [Tamiflu] 75 mg PO BID #10 cap PredniSONE [Deltasone] 60 mg PO WB #12 tab Budesonide Flexhaler [Pulmicort 180 Mcgflexhaler] 1 - 2 puff INH BID #1 inhaler Atorvastatin Calcium 20 mg PO DAILY #0 tab Ferrous Gluconate 324 mg PO BIDWM #0 tab Metformin XR [Glucophage Xr] 1,000 mg PO WS PEG 3350 17gm PACKET [Miralax] 17 gm PO DAILY PRN PRN Reason: Constipation Omeprazole [Prilosec] 20 mg PO DAILY Referrals: Sana Kaiser MD [Family Provider] - Time of Disposition: 17:17 - Seen By: physician
--- NOTE | 2017-09-27 16:13 | CT Scan Report ---
Indication: Free air CT abdomen pelvis w con: Comparison: 05/01/[address] previous plain films suggesting free air under the diaphragms Technique: Patient is scanned from above the diaphragm to below the pubic symphysis after 100 cc Omni 300 intravenous contrast is used with dose reduction imaging technology and reformatted sagittal and coronal image planes. Findings: Heart size is at the upper range of normal. Mild chronic lung changes are seen with some mild basilar atelectasis. As identified on the plain films there is extensive free air identified under the diaphragms and along the liver margin. It is difficult to see the exact site of perforation. Gallbladder is showing a layering of dense debris. No biliary ductal dilatation is seen. Liver was otherwise homogeneous in texture. Spleen was unremarkable. Pancreas seems unremarkable. Adrenal glands are unremarkable. Both kidneys excrete the contrast in a similar pattern showing no obstruction, mass or cyst. Patient shows some scattered diverticular changes in the distal descending and sigmoid colon in particular. No focal abscess or significant suggestion of obstruction or acute inflammatory changes were seen in the distal bowel. Bladder contour is unremarkable. Reformatted images demonstrated no acute vertebral body fractures but showed multilevel degenerative disc changes. Impression: 1. Patient demonstrates free intraperitoneal air. The exact source is somewhat indeterminant although there are numerous diverticula in the distal descending and sigmoid colon and there are some small air collections near the duodenal C-loop. 2. Considerable debris in the gallbladder although no biliary ductal dilatation seen. 3. Findings called ordering ER clinician when study provided as a critical result. .
--- NOTE | 2017-09-27 17:35 | General Surg History&Physical ---
- History of Present Illness Chief complaint: Pneumoperitoneum HPI: Per Dr. Stanton REPLACED BY [facility] Patient Stated Medical History Cataracts Yes: left eye Congestive Heart Failure Yes Hypertension Yes Myocardial Infarction Yes Asthma Yes Diabetes Mellitus Type 2 Yes: diet/oral med controlled Hiatal Hernia Yes Anemia Yes: antibody sensitivity Blood Transfusions Yes: chronic anemia Influenza-A 09/2017 Surgical History: CABG-bypass graft 4 with sternal plating,ORTIZ to LAD & OM1, distal circ to PDA 11/13/15-Dr. Romero. Umbilical hernia repair 04/06/2006 ( Dr. Bolanos). Pacemaker placement-2008, Dr. Pillai (complete heart block). Bilateral eye surgery. Atarax extraction of left eye-2012. Colonoscopy-2014 adenomatous polyp X3 (Dr. Bolanos). EGD- normal 10/19/2014 (Dr. Bolanos) Family History: Noncontributory - Social History Smoking status: Never smoker Substance use type: does not use Previous occupational history: [employer] Medications Home Medications Medication Instructions Recorded Confirmed Type Atorvastatin Calcium 20 mg PO DAILY #0 tab 01/09/16 09/27/17 History Budesonide Flexhaler [Pulmicort 1 - 2 puff INH BID #1 inhaler 01/09/16 09/27/17 History 180 Mcgflexhaler] Ferrous Gluconate 324 mg PO BIDWM #0 tab 01/09/16 09/27/17 History Albuterol Sulfate [Proair Hfa] 2 puff INH Q6H PRN 04/21/17 09/27/17 History Albuterol/Ipratropium [Duoneb] 3 ml INH QID PRN 04/21/17 09/27/17 History Budesonide 1 vial AEROSOL BID 04/21/17 09/27/17 History Acetaminophen 650 mg PO Q4H PRN 09/23/17 09/27/17 History Bisoprolol [Zebeta] 2.5 mg PO DAILY 09/23/17 09/27/17 History Cyanocobalamin (Vitamin B-12) 1 tab PO DAILY 09/23/17 09/27/17 History [Vitamin B-12] Docusate Sodium [Colace] 1 cap PO BID 09/23/17 09/27/17 History Folic Acid [Folate] 1 tab PO DAILY 09/23/17 09/27/17 History Gemfibrozil [Lopid] 600 mg PO BID 09/23/17 09/27/17 History Metformin XR [Glucophage Xr] 1,000 mg PO WS 09/23/17 09/27/17 History Omeprazole [Prilosec] 20 mg PO DAILY 09/23/17 09/27/17 History PEG 3350 17gm PACKET [Miralax] 17 gm PO DAILY PRN 09/23/17 09/27/17 History Promethazine + Cod Liq [Phenergan 5 ml PO Q6H PRN 09/23/17 09/27/17 History + Codeine] Allergies Allergy/AdvReac Type Severity Reaction Status Date / Time No Known Drug Allergies AdvReac Unknown Verified 09/27/17 10:31 Review of Systems 10-point ROS: negative except for HPI and the following: - General General: Present: fever, chills, other (fatigue) - Respiratory Respiratory: Present: difficulty breathing, cough - Gastrointestinal Gastrointestinal: Present: constipation, other (GERD) - Musculoskeletal Musculoskeletal: Present: back pain, joint pain - Endocrine Endocrine: Present: diabetes - Vital Signs Last Vital Signs Temp 98.0 F 09/27/17 14:41 Pulse 62 09/27/17 15:45 Resp 24 09/27/17 14:41 BP 144/70 H 09/27/17 15:30 Pulse Ox 95 09/27/17 15:45 - Laboratory Result Diagrams: 09/27/17 15:09 09/27/17 15:09 General Surgery Results - Results Labs: 09/27/17 15:09 09/27/17 15:09 Hospital Course Summary Disclaimer: The visit summary below is not to be considered part of the above Progress Note.
[2017-09-27] MEDS ORDERED: LR 1,000 ML IV SCH (17:50)
[2017-09-27] MEDS ORDERED: ERTAPENEM 1 G in NS 100 ML IV ONE ×2 (17:50→18:34)
--- NOTE | 2017-09-27 18:05 | History and Physical ---
FINDINGS Mr. Oro is an 87-year-old gentleman whom I was asked to see today by the emergency room physician as a result of the finding of a pneumoperitoneum upon radiographic evaluation. Upon questioning Mr. Oro, he informs me that shortly after the New Year he had developed the "stomach flu." Patient states he did have a fair amount of diarrhea and vomiting. The patient states that he got over the "stomach flu" but then developed the "respiratory flu." Patient states over the last week he has had a very significant cough. He upon questioning denied much in the way of any element of abdominal pain. He states that perhaps he has had some minimal discomfort within the left lower quadrant. His primary complaint was that of increasing general malaise and a very persistent cough. Patient states that he has "not been able to sleep" as a result of this severe cough. The patient denies any prior abdominal surgeries. He does have known cardiac disease. Currently denies any element of angina. PAST MEDICAL HISTORY, PAST SURGICAL HISTORY,MEDICATIONS, ALLERGIES, SOCIAL HISTORY, FAMILY HISTORY, REVIEW OF SYSTEMS Performed by my nurse practitioner, Surinder Beltre APRN. PHYSICAL EXAMINATION Mr. Oro is an elderly 87-year-old gentleman who was coughing quite a bit upon entering the ER room but did not appear to be in acute distress. PHYSICAL EXAM VITAL SIGNS: Temperature 98.0, pulse 62, blood pressure 144/70, SAO2 95% on room air. HEENT: Normocephalic. Pupils are equally round and react to light and accommodation. CHEST: Auscultation of the chest reveals coarse breath sounds bilaterally. HEART: Rate and rhythm. Normal S1 and S2 without gallops, murmurs, clicks. ABDOMEN: Despite the patient having pneumoperitoneum, he did not have any peritoneal signs. There was no evidence for guarding or rebound. Firm palpation to the left lower quadrant did elicit some discomfort to the patient but, again, there was no evidence for guarding or rebound. No evidence for hepatosplenomegaly or other abnormal masses. Percussion of the anterior abdomen did reveal it to be quite hyperresonant in nature. EXTREMITIES: Without clubbing, cyanosis, or edema. NEURO: Cranial nerves II-XII grossly intact. Patient is without focal motor or sensory deficits. LABORATORY/RADIOGRAPHIC EVALUATION The patient had a CBC obtained and his white count was 7.3. Hemoglobin is 12.2. CMP was obtained and his glucose was elevated to 69. Otherwise, no marked abnormalities were noted. Lipase was normal at 89. The patient had a CT scan of his abdomen and pelvis. One can see a fair amount of free air along the anterior abdominal wall as well as a fair amount of "little droplets of air" around the duodenal C-loop area. One could also see some free air along the hepatoduodenal ligament. Additionally, there is some free air along the liver margin. Exact source for the pneumoperitoneum was indeterminate from a radiographic standpoint. ASSESSMENT 87-year-old gentleman with history for flu who upon radiograph evaluation was found to have a fairly extensive pneumoperitoneum. PLAN I informed the patient and his granddaughter who was present this evening that as a general rule when someone had a perforated viscus they do present with severe abdominal pain as well as typically fever, tachycardia and elevation of their white count. He does not have any of these findings, but nonetheless has a significant amount of free air noted on CT scan. I informed the patient and his granddaughter that I feel a little reluctant not to proceed with surgical intervention given the fact that he has so much free air. I informed the patient and his granddaughter that at times elderly patients will present atypically with not typical physical findings that we would see in a younger individual. I informed the patient that if we admitted him and waited until he developed significant symptoms that the potential delay in surgery could be devastating and result in if he does indeed have a perforated viscus and we not intervene for another 24-48 hours. As a result of the above circumstance it was therefore my recommendation that we should proceed with surgical intervention. It was my thought that we would start initially with a diagnostic laparoscopy and see if there is any evidence for bilious fluid or purulent/stool-like material within the peritoneal cavity. If there is evidence for perforation will then proceed with formal laparotomy. If no free fluid is noted and there is no evidence for any contamination we may not proceed with formal laparotomy and explore the abdomen laparoscopically. The above plan was discussed with the patient and his granddaughter. They understood and agreed. NIKIA
[2017-09-27] MEDS ORDERED: PROPOFOL 20 ML ONE (18:40)
[2017-09-27] MEDS ORDERED: ROCURONIUM 50 MG/5 ML INJECTION IVP ONE (18:41)
[2017-09-27] MEDS ORDERED: SUCCINYLCHOLINE 20mg/mL 10mL INJECTION ONE (18:41)
[2017-09-27] MEDS ORDERED: LR 1,000 ML IV ONE (18:46)
[2017-09-27] MEDS: NS 1,000 ML IV SCH ×3 (18:46→21:56)
[2017-09-27] MEDS ORDERED: MIDAZOLAM 2mg/2ml INJECTION ONE (18:47)
[2017-09-27] MEDS ORDERED: FentaNYL 250 MCG/5 ML INJECTION ONE (18:47)
[2017-09-27] MEDS ORDERED: EPHEDRINE 50mg/ml INJECTION ONE (19:04)
[2017-09-27] MEDS ORDERED: ONDANSETRON 4 MG/2 ML INJECTION ONE (19:37)
[2017-09-27] MEDS ORDERED: SUGAMMADEX 200mg/2ml INJECTION IVP ONE (19:37)
[2017-09-27] MEDS ORDERED: BUPIVACAINE 0.5%/EPI 1:200,000 INJ 30ml SDV ONE (19:50)
[2017-09-27] MEDS ORDERED: BUPIVACAINE 0.5%/EPI 1:200,000 INJ 30ml SDV INFIL ONE (19:50)
--- NOTE | 2017-09-27 20:12 | General Surgery Procedure Note ---
Date of Procedure: 09/27/17 Surgeon: Maximino Spanish Speaking Babysitter: Surinder Beltre APRN Postoperative Diagnosis: Free air in abdomen Procedure: Diagnostic Laparoscopy Estimated Blood Loss: See Anesthesia Record. Pathology: none sent
[2017-09-27] MEDS ORDERED: MORPHINE SULFATE 4mg INJECTION IVP PRN (20:20)
[2017-09-27] MEDS ORDERED: ONDANSETRON 4 MG/2 ML INJECTION IVP PRN (20:20)
[2017-09-27] MEDS ORDERED: ACETAMINOPHEN 325 MG TABLET PO PRN (20:20)
[2017-09-27] MEDS ORDERED: POLYETHYL GLYCOL 3350 17gm PACKET PO PRN (20:20)
--- NOTE | 2017-09-27 20:29 | Anesthesia Preoperative Report ---
Anesthesia Preoperative Record - Date and Time Date: 09/27/17 Preoperative Diagnosis: NA Proposed Procedure: diagnostic lap vs ex lap NPO Since Date: 09/27/17 NPO Since Time: 14:00 (chicken strip dinner- Maximino declaring emergency) Allergies/Adverse Reactions: Allergies Allergy/AdvReac Type Severity Reaction Status Date / Time No Known Drug Allergies AdvReac Unknown Verified 09/27/17 10:31 - Vital Signs Vital Signs: Temperature 97 F 09/27/17 20:02 Pulse Rate 78 09/27/17 20:22 Respiratory Rate 19 09/27/17 20:22 Blood Pressure 156/70 H 09/27/17 20:22 Pulse Oximetry 92 09/27/17 20:22 - Medications Inpatient Medications: Current Medications Acetaminophen (Tylenol) 650 mg PO Q4H PRN PRN Reason: Pain Albuterol/Ipratropium (Duoneb) 3 ml AEROSOL QID [place] Atorvastatin Calcium (Lipitor) 20 mg PO DAILY [facility] Benzonatate (Tessalon Perles) 200 mg PO TID PRN PRN Reason: Cough Bisoprolol Fumarate (Zebeta) 2.5 mg PO DAILY [facility] Budesonide (Pulmicort Inhalation) 0.5 mg AEROSOL BID [place] Docusate Sodium (Colace) 100 mg PO BID [facility] Enoxaparin Sodium (Lovenox) 40 mg SQ DAILY [place] Gemfibrozil (Lopid) 600 mg PO BID [facility] Sodium Chloride (Normal Saline) 1,000 mls @ 75 mls/hr IV .[id number] [place] Morphine Sulfate (Morphine Sulfate Inj) 1 - 2 mg IVP Q1H PRN PRN Reason: Pain Omeprazole (Prilosec) 20 mg PO DAILY [place] Ondansetron HCl (Zofran) 4 mg IVP Q6H PRN PRN Reason: Nausea &/or vomiting Oseltamivir Phosphate (Tamiflu) 75 mg PO BID [place] Oxycodone HCl (Roxicodone *Ir*) 5 mg PO Q5H PRN PRN Reason: Pain Polyethylene Glycol (Miralax) 17 gm PO DAILY PRN PRN Reason: Constipation Prednisone (Deltasone) 60 mg PO WB [facility] Promethazine HCl/Codeine (Phenergan + Codeine) 5 ml PO Q6H PRN PRN Reason: Cough Home Medications: Home Medications Medication Instructions Recorded Confirmed Type Atorvastatin Calcium 20 mg PO DAILY #0 tab 01/09/16 09/27/17 History Budesonide Flexhaler [Pulmicort 1 - 2 puff INH BID #1 inhaler 01/09/16 09/27/17 History 180 Mcgflexhaler] Ferrous Gluconate 324 mg PO BIDWM #0 tab 01/09/16 09/27/17 History Albuterol Sulfate [Proair Hfa] 2 puff INH Q6H PRN 04/21/17 09/27/17 History Albuterol/Ipratropium [Duoneb] 3 ml INH QID PRN 04/21/17 09/27/17 History Budesonide 1 vial AEROSOL BID 04/21/17 09/27/17 History Acetaminophen 650 mg PO Q4H PRN 09/23/17 09/27/17 History Bisoprolol [Zebeta] 2.5 mg PO DAILY 09/23/17 09/27/17 History Cyanocobalamin (Vitamin B-12) 1 tab PO DAILY 09/23/17 09/27/17 History [Vitamin B-12] Docusate Sodium [Colace] 1 cap PO BID 09/23/17 09/27/17 History Folic Acid [Folate] 1 tab PO DAILY 09/23/17 09/27/17 History Gemfibrozil [Lopid] 600 mg PO BID 09/23/17 09/27/17 History Metformin XR [Glucophage Xr] 1,000 mg PO WS 09/23/17 09/27/17 History Omeprazole [Prilosec] 20 mg PO DAILY 09/23/17 09/27/17 History PEG 3350 17gm PACKET [Miralax] 17 gm PO DAILY PRN 09/23/17 09/27/17 History Promethazine + Cod Liq [Phenergan 5 ml PO Q6H PRN 09/23/17 09/27/17 History + Codeine] Is Patient on Beta Lili?: Yes - Medical History Respiratory: Reports: Asthma, Chronic Obstructive Pulmonary Disease (COPD) ( lung disease due to prison dust/grain exposure, chronic breathing tx's), Other (Influenza A) Cardiovascular: Reports: Congestive Heart Failure (no recent exacerbation- pt thinks may have been before CABG), Hypertension, Myocardial Infarction DENIES: Angina (none since CABG) Gastrointestional: Reports: Hiatal Hernia DENIES: Nausea or Vomiting Present, Gastroesophageal Reflux Disease Neuro/Musculoskeletal: Reports: Back Problems Renal/Endocrine: Reports: Diabetes Mellitus Type 2 (diet/oral med controlled) Other History: Reports: Blood Transfusions (chronic anemia) - Surgical History Cardiac Surgeries/Treatments: Reports: Coronary Artery Bypass Graft, Pacemaker GI Surgery/Treatments: Reports: Hernia Repair, Colonoscopy Musculoskeletal Surgery/Tx: Reports: Other (bilateral knee steroid shots) Anesthesia Reactions: None Hx Family Anesthesia Reaction: No History of Motion Sickness: No - Social History Smoking Status: Never smoker Hx Chewing Tobacco Use: No Second Hand Exposure: No Substance Use Type: does not use Alcohol Intake Frequency: holidays/special occasions only - Pertinent Findings EKG: Sinus Rhythm - Physical Exam Respiratory Exam: Present: bilateral breath sounds equal (coarse- duoneb ordered preop) - Airway Assessment Mallampati Score: II TMD: 3 Fingerbreadths Neck Extension: good Overall Assessment: other (reactive airway concerns) - Plan Anesthesia: General Inhalation Gases - Discussion Discussion: Discussed risks/options/alternatives of anesthesia and questions answered. Patient consents. Nursing pain assessment noted. Present for Discussion: family member Attestation Statement: Prior to the delivery of any anesthetic medication, I examined the patient, developed the plan, obtained the patient's consent and discussed the risk and benefits of the procedure with the patient/guardian. - Additional Information Seen by Anesthesia: Yes
--- NOTE | 2017-09-27 20:30 | Anesthesia Postoperative Note ---
- Date and Time Date: 09/27/17 Time: 20:30 - Status Patient Participated in Evaluation: Patient Participated in Person Vital Signs: Temperature 97 F 09/27/17 20:02 Pulse Rate 83 09/27/17 20:27 Respiratory Rate 18 09/27/17 20:27 Blood Pressure 134/65 09/27/17 20:27 Pulse Oximetry 91 09/27/17 20:27 Respiratory Function: Airway Patent Cardiovascular Function: Regular Pulse Mental Status: Alert and Oriented Pain Intensity: 2 Hydration: IV Infusing Complications During Recover: None Apparent - Follow-Up Instructions Instructions: Per Surgeon
[2017-09-27] MEDS ORDERED: ALBUTEROL/IPRATROPIUM 2.5mg-0.5mg/3ml NEB AEROSOL SCH (21:00)
[2017-09-27] MEDS ORDERED: GEMFIBROZIL 600 MG TABLET PO SCH (21:00)
[2017-09-27] MEDS ORDERED: BUDESONIDE INH.SOLN 0.5mg/2ml NEB AEROSOL SCH (21:00)
[2017-09-27] MEDS: DOCUSATE SODIUM 100 MG CAPSULE PO SCH (21:57)
[2017-09-27] MEDS: INSULIN ASPART 100unit/ml INJECTION SQ PRN (22:08)
[2017-09-27] MEDS: PROMETHAZINE/CODEINE ORAL LIQUID 5ml PO PRN (23:09)
[2017-09-27 23:31] VITALS: BMI 29.2
[2017-09-27] MEDS ORDERED: ALBUTEROL/IPRATROPIUM 2.5mg-0.5mg/3ml NEB AEROSOL PRN (23:37)
[2017-09-28] MEDS: PROMETHAZINE/CODEINE ORAL LIQUID 5ml PO PRN (05:00)
[2017-09-28] MEDS: SORE THROAT SPRAY 20ml PO PRN ×2 (05:00→08:04)
[2017-09-28] MEDS ORDERED: GEMFIBROZIL 600 MG TABLET PO SCH (06:30)
[2017-09-28] MEDS ORDERED: OMEPRAZOLE 20 MG CAPSULE PO SCH (06:30)
[2017-09-28] MEDS: BENZONATATE 200 MG CAPSULE PO PRN (07:56)
[2017-09-28] MEDS: PredniSONE 20 MG TABLET PO SCH (07:57)
[2017-09-28] MEDS: DOCUSATE SODIUM 100 MG CAPSULE PO SCH ×2 (07:59→20:38)
[2017-09-28] MEDS: ENOXAPARIN 40 MG/0.4 ML INJECTION SQ SCH (08:00)
[2017-09-28] MEDS: Oxycodone *IR* 5 MG TABLET PO PRN (08:54)
[2017-09-28] MEDS: PANTOPRAZOLE 40 MG INJECTION IVP SCH (08:55)
[2017-09-28] MEDS: ALBUTEROL/IPRATROPIUM 2.5mg-0.5mg/3ml NEB AEROSOL SCH ×3 (10:07→22:50)
--- NOTE | 2017-09-28 10:12 | Operative Note ---
DATE OF SERVICE: 09/27/2017 SURGEON: Baljit Stanton MD SR. MANAGER MARKETING: Surinder Beltre APRN PREOP DIAGNOSIS: Pneumoperitoneum. POSTOP DIAGNOSIS: Pneumoperitoneum. PROCEDURE: Diagnostic laparoscopy with lysis of adhesions. ANESTHESIA: General endotracheal. EBL & FLUIDS: Please see chart. BRIEF HISTORY/INDICATIONS Mr. Oro is an 87-year-old gentleman who I was asked to see today through the Emergency Room as a result of a finding of marked pneumoperitoneum noted upon radiographic evaluation. The patient was seen earlier today and felt to have the flu. He has had a significant amount of coughing over the course of the last couple of weeks. Apparently he has tested positive for influenza A in the recent past through the ER. Earlier this year he had "stomach flu" per his report. On CT scan the patient was found to have a fair amount of free air within the abdomen. Upon examination the patient did not have marked abdominal tenderness. From a laboratory standpoint he did not have a component of leukocytosis. Nonetheless, given this marked pneumoperitoneum noted upon CT scan, it was my recommendation that we should proceed with surgical evaluation. For completeness, please refer to notes included in the patient's chart. DESCRIPTION OF PROCEDURE After informed consent was obtained, the patient was brought to the operative suite and placed on the table in supine fashion. The abdomen was then prepped and draped in sterile fashion. Formal time-out was then completed. 0.25% Marcaine with epinephrine was injected just beneath the level of the umbilicus. A 2 cm incision was then made overlying the area of analgesia in an infraumbilical fashion. Dissection was carried down through the deep subcuticular tissue to the underlying fascia. Fascia was then grasped with two Morgan clamps and retracted anteriorly. A 1 cm incision was then made between the two Morgan clamps. Hemostat was then introduced into the fascial incision and gently spread. U-stitch was then placed through the fascial opening. 12 mm Dennis port was then placed in the peritoneal cavity and pneumoperitoneum was established to a patient pressure of 15 mmHg utilizing carbon dioxide. Next , three additional 5 mm ports were then placed in the left lower quadrant, right lower quadrant and epigastric region just to the left of midline. Each port site was preinjected with 0.25% Marcaine with epinephrine and placed under visualization. Abdominal cavity was explored via laparoscopic. Initially attention was focused to the upper abdomen. One could see several "bubbles" present along the peritoneal surface within the epigastric region as well as upon the anterior surface of the left lobe of the liver. Additionally there were several "bubbles" that one could visualize along the gastrohepatic ligament as well as within the omentum within the left upper quadrant as well as along the lateral aspect of the liver. Photos were obtained for documentation purposes. There was no free fluid within the peritoneal cavity, however. There was no bilious drainage nor any evidence for stool like material throughout the peritoneal cavity. A systematic approach was then performed. Attention was first focused to the stomach. Stomach was fairly distended initially which did limit visualization. I subsequently had Anesthesia place a orogastric tube and decompress the stomach. The "bubbles" that were noted along the inferior edge of the liver were suctioned. Gastrohepatic ligament was visualized and could be seen into the retrogastric space. There was no evidence of contents beneath the gastrohepatic ligament to suggest a retrogastric process. Anterior surface of the stomach was without noted abnormalities. The stomach was carefully inspected. Attention was then focused towards the duodenal C-loop. Upon CT scan there was a fair amount of "air droplets" around the duodenal C-loop. One could see several "bubbles" upon the peritoneal surface which were suctioned. Duodenal C-loop was without noted abnormalities. Duodenum was soft and freely pliable along the anterior aspect of the C-loop. There was no inflammatory changes out laterally to the duodenum to suggest a perforation within the retroduodenal space/ retroperitoneum. I elected not to Kocherize the duodenum given the absence of any findings around the duodenal C-loop. Gallbladder was slightly distended although it was not inflamed and was a normal "campbell egg blue". Arash's capsule was smooth without nodularities throughout. There was no fluid surrounding the perihepatic space. Next attention was focused to the right lower quadrant. Appendix was visualized and was normal with no suggestion for appendicitis. Right colon was carefully inspected and found to be without noted abnormalities. Hepatic flexure was visualized and was without noted abnormalities. Omentum was grasped and retracted in a cephalad fashion. The patient was placed in reverse Trendelenburg position. At this time I elected to run the small bowel. Terminal ileum was identified. Bowel was then run proximally from the terminal ileum up to the ligament of Treitz. This was performed utilizing a wavy grasper and a 5-mm grasper. Small bowel was normal throughout. No abnormalities were noted. No fluid or evidence for succus entericus like material was present. Attention then focused back to the hepatic flexure region and transverse colon. One could see a few diverticulum along the transverse colon but again no acute inflammatory changes were noted. Splenic flexure was then visualized and without noted abnormalities. Attention was then focused down the descending colon. One could see several diverticulum although there was no evidence for diverticulitis or a phlegmon process present. No evidence for fluid along the left pericolic gutter. As one approached the sigmoid colon region there were some adhesions between the sigmoid colon and the left lateral abdominal wall. These adhesions were taken down so that the sigmoid colon could be reflected medially and the rectum and rectosigmoid junction could be more carefully visualized. The patient was placed in Trendelenburg position and the pelvis was carefully inspected. Again there was no free fluid within the pouch of Allen. The parasigmoid colon region perhaps had some thickening although this was fairly subtle. This could have been the result of a fair amount of stool burden within the distal descending colon/sigmoid colon region. Again no phlegmonous process was present. The entire abdomen at this time had been carefully inspected laparoscopically. The patient did have significant medical comorbidities and had been coughing significantly during the physical examination and interview process. I elected not to proceed with formal laparotomy given the absence of any significant findings. It was my intuition that perhaps the pneumoperitoneum was of a "thoracic etiology" as a result of the patient's significant coughing over the last several weeks. At this time ports were removed under direct visualization. Previously placed U-stitch at the infraumbilical region was then tied securely resulting in imbrication of the fascial edges. Skin edges were then closed with stella. The patient was awakened from his anesthetic and will be sent back to the ICU/Recovery Room once in stable condition. NIKIA
[2017-09-28] MEDS: NS 1,000 ML IV SCH (11:18)
--- NOTE | 2017-09-28 11:51 | Progress Note ---
- Date 09/28/17 Subjective: Mr. Oro reports he feels better overall. He continues to have a cough but no sputum production. He had some abdominal pain earlier today but it's improved after having a pain pill. He ate real food this morning and had some difficulty swallowing which he attributes to throat irritation secondary to ET tube; he denies chronic difficulty with dysphasia. He denies fevers, chills, nausea, or vomiting. Influenza and Tamiflu were initiated last and he' s been taking the medication consistently since that time. ER records reviewed- Tamiflu prescribed 09/23. Objective Vital signs: Temperature 96.9 F 09/27/17 20:32 Pulse Rate 79 09/28/17 08:31 Respiratory Rate 18 09/28/17 10:08 Blood Pressure 155/81 H 09/28/17 08:31 Pulse Oximetry 94 09/28/17 10:08 I/O 605/1200 NAD, alert EOMI, conjunctiva clear, oropharynx clear Respirations nonlabored, good airflow, breath sounds clear except coarse cough Regular rhythm, S1-S2 Abdomen is soft, obese, moderately distended, nontender, active bowel sounds Extremities without edema MAEW Telemetry reviewed-paced at a rate of 70, occasional PVCs Height/Weight/BMI: Height 1.75 m Weight 90 kg Body Mass Index 29.2 Results - Labs CBC & Chem 7: 09/28/17 04:00 09/28/17 04:00 Labs: A1C 6.4 Liver enzymes normal Assessment and Plan (1) Pneumoperitoneum Current visit: No Status: Inactive Assessment and Plan: Impression: Pneumoperitoneum Influenza A, 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 Hypertension Dyslipidemia. Coronary artery disease. Ischemic cardiomyopathy. Type 2 diabetes, [id number]. Asthma. GERD. Plan: Status post laparoscopy yesterday evening with evidence of air bubbles along the diaphragms but no evidence of bowel perforation-surgery speculates that forceful coughing triggered air under the diaphragms. X-rays reviewed-no evidence of pneumomediastinum although CT abdomen does not extend very high into the chest. Films reviewed again today. Discontinue St catheter, transfer out of ICU; PT/OT consults. Continue IV fluids until oral intake is established. Persistent cough due to influenza, completes 5 day course of Tamiflu this morning. Hemoglobin stable, resume folic acid/B-12; diabetes well controlled, resume metformin tomorrow-continue corrective insulin at present. Mr. Oro's son is his DPOA. He has a living will. CODE STATUS: Full code. - Physician Narrative Narrative: Date: 09/28/17 Time: 1146 Hospital Course Summary Disclaimer: The visit summary below is not to be considered part of the above Progress Note. Hospital Course: 09/27/17: Hospitalist consult The primary concerns for Mr. Oro include respiratory status and anemia, diabetes, and coronary artery disease/cardiomyopathy. 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 We may have difficulty extubating him or he may require prolonged oxygen and/or BiPAP use. We may need to consult Dr. Mcleod. Mr. Oro does not see a smoke eater on a routine basis. Will start DuoNeb treatment every 4 hours and continue budesonide BID. He has autoimmune hemolytic anemia and the last time he required a blood transfusion during his open heart surgery and took 4 days to find a blood match. 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 Gomez, or consider consultation with a local airplane pilot supervisor. For diabetes, monitor blood sugars 4 times a day and start low-dose sliding scale insulin with a goal of keeping blood sugars under 180. Check hemoglobin A1c. When diet is advanced, change accuchecks to after-meals. Significant cardiac history including coronary bypass about 2 years ago. Monitor fluid status closely. His procurement accountant is Dr. Vance. Labs were done this afternoon, showing mild anemia with a hemoglobin of 12.2. Normal white count at 7.3. Platelets were 293. Sodium 144, potassium 3.9, BUN 25 , creatinine 1.2. Will assess liver function tests. Mr. Oro's son is his DPOA. He has a living will. CODE STATUS: Full code. 09/27/17-medicine Status post laparoscopy yesterday evening with evidence of air bubbles along the diaphragms but no evidence of bowel perforation-surgery speculates that forceful coughing triggered air under the diaphragms. X-rays reviewed-no evidence of pneumomediastinum although CT abdomen does not extend very high into the chest. Films reviewed again today. Discontinue St catheter, transfer out of ICU; PT/OT consults. Continue IV fluids until oral intake is established. Persistent cough due to influenza, completes 5 day course of Tamiflu this morning. Hemoglobin stable, resume folic acid/B-12; diabetes well controlled, resume metformin tomorrow-continue corrective insulin at present.
[2017-09-28] MEDS: INSULIN ASPART 100unit/ml INJECTION SQ PRN ×3 (12:25→21:51)
--- NOTE | 2017-09-28 18:36 | Progress Note ---
DATE OF SERVICE 09/28/2017 FINDINGS Mr. Oro was seen earlier today on rounds. He states that he was "feeling better." He states that he was not "coughing as much." PHYSICAL EXAM VITAL SIGNS: Afebrile, normotensive. Please refer to EMR. CHEST: Coarse breath sounds. HEART: Rate and rhythm. ABDOMEN: Soft. Incisional tenderness. No evidence for peritonitis/rebound or involuntary guarding. ASSESSMENT 87-year-old gentleman status post diagnostic laparoscopy secondary to pneumoperitoneum noted upon CT scan. No evidence for perforated viscus noted upon laparoscopy. Patient making improvement from a clinical standpoint. PLAN I did review his lab work today and his white count remains stable at 8.3. Hemoglobin is overall stable at 11.2. BMP was noted and his potassium is slightly elevated at 5.1. Overall, I am pleased the patient's progress. Recommend that we continue to follow the patient closely over the next 24 hours. Will follow with serial abdominal examinations. Tomorrow if he is tolerating a regular diet and does not have increasing leukocytosis or increasing abdominal pain he may perhaps be able to be discharged at that time. NIKIA
[2017-09-28] MEDS: GEMFIBROZIL 600 MG TABLET PO SCH (18:57)
[2017-09-28] MEDS: ATORVASTATIN 20 MG TABLET PO SCH (20:38)
[2017-09-28] MEDS: BUDESONIDE INH.SOLN 0.5mg/2ml NEB AEROSOL SCH (22:50)
[2017-09-29] MEDS: NS 1,000 ML IV SCH ×6 (00:24→16:09)
[2017-09-29] MEDS: PROMETHAZINE/CODEINE ORAL LIQUID 5ml PO PRN (02:51)
[2017-09-29] MEDS: GEMFIBROZIL 600 MG TABLET PO SCH ×2 (07:39→17:38)
--- NOTE | 2017-09-29 09:05 | General Surgery Progress Note ---
Subjective Patient reports: pain is less, tolerating a regular diet, voiding w/o difficulty , flatus Narrative: Patient tells me he is passing flatus and has had small bowel movement. Coughing quite a lot and the umbilical incision has had some bloody oozing. Nursing is covering this with dry gauze and changing it on an as-needed basis. - Vital Signs Last Vital Signs Temp 96.1 F L 09/29/17 03:59 Pulse 66 09/29/17 03:59 Resp 18 09/29/17 03:59 BP 146/78 H 09/29/17 03:59 Pulse Ox 93 09/29/17 03:59 - Laboratory Result Diagrams: 09/29/17 04:48 09/29/17 04:48 - Abnormal Exam Respiratory: other (moist barking cough) - Normal Exam General: awake, alert, oriented Cardiovascular: regular rate Abdominal: soft, appropriately tender, incision(s) (stella intact at trocar sites, umbilical incision dressing two thirds saturated with old and new blood.) Psychiatric: normal affect Assessment and Plan (1) Intra-abdominal free air of unknown etiology Current Visit: Yes Status: Acute (2) Influenza A Current Visit: Yes Status: Acute Plan: 09/29/2017 postop day #2 He's eating a regular diet and is passing flatus and states a small stool. Continues with moist barking cough, No abdominal source of free air in the abdomen found at the time of surgery. Continue with medical management of his other comorbidities. He may be dismissed when medically stable follow-up in Dr. Stanton's office for routine postop in 2 weeks. ADDENDUM: 7pm He had trouble with bloody oozing of the umbilical incision most of the day, seemed to get worse during the afternoon and with coughing. Oozing eventually controlled with pinpoint direct pressure and 1% Lidocaine with Epi. Hospital Course Summary Disclaimer: The visit summary below is not to be considered part of the above Progress Note. Hospital Course: ASSESSMENT 87-year-old gentleman with history for flu who upon radiograph evaluation was found to have a fairly extensive pneumoperitoneum. He was taken emergently to the OR for Diagnostic laparoscopy, possible laparotomy. "Bubbles" were seen within the abdomen, but no perforation of any viscus was identified. He was transferred to CCU postoperatively. 09/27/17: Hospitalist consult The primary concerns for Mr. Oro include respiratory status and anemia, diabetes, and coronary artery disease/cardiomyopathy. 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 We may have difficulty extubating him or he may require prolonged oxygen and/or BiPAP use. We may need to consult Dr. Mcleod. Mr. Oro does not see a clay temperer on a routine basis. Will start DuoNeb treatment every 4 hours and continue budesonide BID. He has autoimmune hemolytic anemia and the last time he required a blood transfusion during his open heart surgery and took 4 days to find a blood match. May need to contact his machine coremaker, Dr. Gomez, or consider consultation with a local machine coremaker. For diabetes, monitor blood sugars 4 times a day and start low-dose sliding scale insulin with a goal of keeping blood sugars under 180. Check hemoglobin A1c. When diet is advanced, change accuchecks to after-meals. Significant cardiac history including coronary bypass about 2 years ago. Monitor fluid status closely. His candy feeder is Dr. Vacne. Labs were done this afternoon, showing mild anemia with a hemoglobin of 12.2. Normal white count at 7.3. Platelets were 293. Sodium 144, potassium 3.9, BUN 25 , creatinine 1.2. Will assess liver function tests. Mr. Oro's son is his DPOA. He has a living will. CODE STATUS: Full code. 09/28/2017 Status post laparoscopy yesterday evening with evidence of air bubbles along the diaphragms but no evidence of bowel perforation-surgery speculates that forceful coughing triggered air under the diaphragms. X-rays reviewed-no evidence of pneumomediastinum although CT abdomen does not extend very high into the chest. Films reviewed again today. Discontinue St catheter, transfer out of ICU; PT/OT consults. Continue IV fluids until oral intake is established. Persistent cough due to influenza, completes 5 day course of Tamiflu this morning. Hemoglobin stable, resume folic acid/B-12; diabetes well controlled, resume metformin tomorrow-continue corrective insulin at present. Mr. Oro's son is his DPOA. He has a living will. CODE STATUS: Full code. 09/29/2017 postop day #2 He's eating a regular diet and is passing flatus and states a small stool. Continues with moist barking cough, No abdominal source of free air in the abdomen found at the time of surgery. Continue with medical management of his other comorbidities. He may be dismissed when medically stable follow-up in Dr. Stanton's office for routine postop in 2 weeks. ADDENDUM: 7pm He had trouble with bloody oozing of the umbilical incision most of the day, seemed to get worse during the afternoon and with coughing. Oozing eventually controlled with pinpoint direct pressure and 1% Lidocaine with Epi.
[2017-09-29] MEDS: ALBUTEROL/IPRATROPIUM 2.5mg-0.5mg/3ml NEB AEROSOL SCH ×4 (09:20→20:44)
[2017-09-29] MEDS: BUDESONIDE INH.SOLN 0.5mg/2ml NEB AEROSOL SCH ×2 (09:20→20:44)
[2017-09-29] MEDS: PredniSONE 20 MG TABLET PO SCH (09:57)
[2017-09-29] MEDS: CYANOCOBALAMIN (B-12) 500mcg TABLET PO SCH (09:58)
[2017-09-29] MEDS: FOLIC ACID 1 MG TABLET PO SCH (09:58)
[2017-09-29] MEDS: DOCUSATE SODIUM 100 MG CAPSULE PO SCH ×2 (09:58→22:07)
[2017-09-29] MEDS: ENOXAPARIN 40 MG/0.4 ML INJECTION SQ SCH (10:01)
[2017-09-29] MEDS: PANTOPRAZOLE 40 MG INJECTION IVP SCH (10:01)
[2017-09-29] MEDS ORDERED: ERTAPENEM 1 G in NS 100 ML IV ONE (10:45)
[2017-09-29] MEDS ORDERED: LR 1,000 ML IV SCH (10:45)
[2017-09-29] MEDS ORDERED: BUPIVACAINE 0.5%/EPI 1:200,000 INJ 30ml SDV INFIL ONE (10:45)
[2017-09-29] MEDS ORDERED: NS 1,000 ML IV SCH (10:45)
[2017-09-29] MEDS: Oxycodone *IR* 5 MG TABLET PO PRN ×2 (12:35→18:26)
[2017-09-29] MEDS: INSULIN ASPART 100unit/ml INJECTION SQ PRN ×3 (12:35→22:07)
[2017-09-29] MEDS: BENZONATATE 200 MG CAPSULE PO PRN (12:36)
--- NOTE | 2017-09-29 16:24 | Progress Note ---
- Date 09/29/17 Subjective: Mr. Oro is up in a chair when seen and indicated that the umbilical port incision has been bleeding and that coughing may be making her worse. He continues to cough frequently and feels that they're sputum in his throat that he simply can't cough up. He's been wheezing at times and has exertional dyspnea but is not short of breath at rest. Breathing treatments and other cough suppressants help short-term but nothing really relieves cough. Patient denies nausea or vomiting and reports he had a bowel movement earlier today. He denies lightheadedness and has been ambulating and eating well. St catheter is removed yesterday and he's been voiding without difficulty since that time. Objective Vital signs: Temperature 97.6 F 09/29/17 15:13 Pulse Rate 72 09/29/17 15:13 Respiratory Rate 16 09/29/17 15:13 Blood Pressure 139/78 09/29/17 15:13 Pulse Oximetry 91 - RA 09/29/17 15:13 I/O 1635/305 EXAM General-NAD, alert HEENT-conjunctiva clear Lungs-respirations nonlabored, diminished airflow with inspiration triggering repetitive coughing, breath sounds slightly coarse Cardiac-regular rhythm, S1-S2 Abd-soft, nontender, moderately distended, bowel sounds present; bright red blood soaking through on periumbilical dressing Ext-trace edema Neuro-MAEW Psych-calm, cooperative - Height/Weight/BMI: Height 1.75 m Weight 88.2 kg Body Mass Index 29.2 Results - Labs CBC & Chem 7: 09/29/17 04:48 09/29/17 04:48 Labs: Accu-Cheks 151-170 so far today Assessment and Plan (1) Pneumoperitoneum Current visit: No Status: Inactive Assessment and Plan: Impression Pneumoperitoneum Influenza A, 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 Hypertension Dyslipidemia. Coronary artery disease. Ischemic cardiomyopathy. Type 2 diabetes, [id number]. Asthma. GERD. Plan Medically stable, has completed course of Tamiflu but has persistent cough. On prednisone (dose decreased to 40 mg a day after 60 mg a day 5 days), duoneb, budesonide, Phenergan With Codeine prn, and Tessalon Perles prn. Mucinex added although expect minimal improvement in cough management. Will schedule Tessalon. Repeat chest x-ray in a.m. to exclude volume overload or alternate process. DC IV fluids. Hemoglobin/blood sugars stable. Platelet count adequate and not a factor in the periumbilical bleeding. Medically stable. Discussed with Dr. Stanton. - Physician Narrative Narrative: Date: 09/29/17 Time: 1616 Hospital Course Summary Disclaimer: The visit summary below is not to be considered part of the above Progress Note. Hospital Course: 09/27/17: Hospitalist consult The primary concerns for Mr. Oro include respiratory status and anemia, diabetes, and coronary artery disease/cardiomyopathy. 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 We may have difficulty extubating him or he may require prolonged oxygen and/or BiPAP use. We may need to consult Dr. Mcleod. Mr. Oro does not see a occupational therapy technician on a routine basis. Will start DuoNeb treatment every 4 hours and continue budesonide BID. He has autoimmune hemolytic anemia and the last time he required a blood transfusion during his open heart surgery and took 4 days to find a blood match. May need to contact his multi purpose machine operator, Dr. Goemz, or consider consultation with a local multi purpose machine operator. For diabetes, monitor blood sugars 4 times a day and start low-dose sliding scale insulin with a goal of keeping blood sugars under 180. Check hemoglobin A1c. When diet is advanced, change accuchecks to after-meals. Significant cardiac history including coronary bypass about 2 years ago. Monitor fluid status closely. His content strategy lead is Dr. Vance. Labs were done this afternoon, showing mild anemia with a hemoglobin of 12.2. Normal white count at 7.3. Platelets were 293. Sodium 144, potassium 3.9, BUN 25 , creatinine 1.2. Will assess liver function tests. Mr. Oro's son is his DPOA. He has a living will. CODE STATUS: Full code. 09/28/2017 Status post laparoscopy yesterday evening with evidence of air bubbles along the diaphragms but no evidence of bowel perforation-surgery speculates that forceful coughing triggered air under the diaphragms. X-rays reviewed-no evidence of pneumomediastinum although CT abdomen does not extend very high into the chest. Films reviewed again today. Discontinue St catheter, transfer out of ICU; PT/OT consults. Continue IV fluids until oral intake is established. Persistent cough due to influenza, completes 5 day course of Tamiflu this morning. Hemoglobin stable, resume folic acid/B-12; diabetes well controlled, resume metformin tomorrow-continue corrective insulin at present. Mr. Oro's son is his DPOA. He has a living will. CODE STATUS: Full code. 09/29/2017 postop day #2 He's eating a regular diet and is passing flatus and states a small stool. Continues with moist barking cough, No abdominal source of free air in the abdomen found at the time of surgery. Continue with medical management of his other comorbidities. He may be dismissed when medically stable follow-up in Dr. Stanton's office for routine postop in 2 weeks. 09/29/17-medicine Medically stable, has completed course of Tamiflu but has persistent cough. On prednisone (dose decreased to 40 mg a day after 60 mg a day 5 days), duoneb, budesonide, Phenergan With Codeine prn, and Tessalon Perles prn. Mucinex added although expect minimal improvement in cough management. Will schedule Tessalon. Repeat chest x-ray in a.m. to exclude volume overload or alternate process. DC IV fluids. Hemoglobin/blood sugars stable. Platelet count adequate and not a factor in the periumbilical bleeding.
[2017-09-29] MEDS: SORE THROAT SPRAY 20ml PO PRN ×2 (17:38→22:08)
[2017-09-29] MEDS ORDERED: LIDOCAINE INFIL ONE (18:04)
[2017-09-29] MEDS ORDERED: EPI INFIL ONE (18:04)
--- NOTE | 2017-09-29 18:30 | Progress Note ---
DATE OF SERVICE 09/29/2017 FINDINGS This Shorty was seen earlier today on morning rounds. He states his abdominal pain was improving. He still has been experiencing some intermittent bleeding from his infraumbilical incision site. PHYSICAL EXAM VITAL SIGNS: Afebrile, normotensive. ABDOMEN: Soft. Minimal incisional tenderness. There was a small amount of bleeding that appeared to have stopped from his infraumbilical incision earlier today. No evidence for guarding or rebound. LABORATORY/RADIOGRAPHIC EVALUATION The patient had a CBC today and his white count was 6.4. Hemoglobin is 11.0. BMP did reveal a an increasing BUN of 20.0. Chloride was slightly elevated at 109. ASSESSMENT 87-year-old gentleman with finding of pneumoperitoneum upon CT scan. Status post diagnostic laparoscopy with no evidence for perforated viscus. Patient with respiratory influenza. Overall, patient improving from a surgical standpoint. PLAN Continue with current care. Will continue to monitor his infraumbilical incision site. If b ligament stops and the patient continues to make improvement I do believe he could be discharged in the near future. [place]
--- NOTE | 2017-09-29 18:56 | Event Note ---
Nursing has been trying most of the afternoon to stop the bloody oozing from the umbilical incision, they have changed the dressing several times and held pressure as instructed. This evening he is still saturating several 4x4's every couple of hours or less. After cleansing the incision with Betadine a q-tip is used to apply direct pressure on the caudad portion of the incision between the 2nd and 3rd staple from the bottom. The bleeding stopped. About 30-45 seconds after releasing the q -tip a couple drops of blood oozed out of the incision. 1% Lidocaine with Epi is then injected all round and into the edges of the incision, a total of 15 ml injected. 3 stella removed, the wound probed to a depth of 1 cm, and no additional bleeding occurred. A lot is noted within the incision. A staple gun was obtained and the incision stella shut. 4x4's pressure dressing applied. Hopefully this will take care of the bloody oozing. Nursing instructed to call me if this significant bleeding occurs again.
[2017-09-29] MEDS: BENZONATATE 200 MG CAPSULE PO SCH (22:07)
[2017-09-29] MEDS: GUAIFENESIN LA 600 MG TABLET PO SCH (22:07)
[2017-09-29] MEDS: ATORVASTATIN 20 MG TABLET PO SCH (22:07)
[2017-09-30] MEDS: SORE THROAT SPRAY 20ml PO PRN ×3 (05:27→21:01)
[2017-09-30] MEDS: BUDESONIDE INH.SOLN 0.5mg/2ml NEB AEROSOL SCH ×2 (08:00→21:48)
[2017-09-30] MEDS: ALBUTEROL/IPRATROPIUM 2.5mg-0.5mg/3ml NEB AEROSOL SCH ×4 (08:00→21:48)
[2017-09-30] MEDS: BENZONATATE 200 MG CAPSULE PO SCH ×3 (09:04→21:00)
[2017-09-30] MEDS: CYANOCOBALAMIN (B-12) 500mcg TABLET PO SCH (09:04)
--- NOTE | 2017-09-30 09:04 | XRay Report ---
EXAM: XR chest 2V COMPARISON: 09/27/2017. One 2017. 04/21/2017. HISTORY: persistent cough . FINDINGS:Pacemaker and pacer wires are stable. Sternotomy wires and sternotomy fixation plate and screws are stable. Mediastinal clips are stable. The heart is upper limits of normal to mildly enlarged. The pulmonary vascularity appears unremarkable. Some ill-defined and linear opacities are seen posteriorly at the lung base on the lateral view which may be related to atelectasis rather than infiltrate. There is interval resolution or near resolution of the previously seen pneumoperitoneum. The lungs are otherwise clear. There is no evidence for pleural effusion. There is no evidence for a pneumothorax. Endplate sclerosis and spurring is seen of the thoracic spine. IMPRESSION: 1. ill-defined linear opacities are seen posteriorly at the lung base on the lateral projection which may represent atelectasis rather than infiltrate. 2. Interval resolution or near resolution of the previously seen pneumoperitoneum. LOCATION OF DICTATION: [facility] – [place] .
[2017-09-30] MEDS: PredniSONE 20 MG TABLET PO SCH (09:05)
[2017-09-30] MEDS: GEMFIBROZIL 600 MG TABLET PO SCH ×2 (09:05→17:09)
[2017-09-30] MEDS: DOCUSATE SODIUM 100 MG CAPSULE PO SCH ×2 (09:05→21:00)
[2017-09-30] MEDS: FOLIC ACID 1 MG TABLET PO SCH (09:05)
[2017-09-30] MEDS: GUAIFENESIN LA 600 MG TABLET PO SCH ×2 (09:05→21:00)
[2017-09-30] MEDS: OMEPRAZOLE 20 MG CAPSULE PO SCH (09:06)
[2017-09-30] MEDS: INSULIN ASPART 100unit/ml INJECTION SQ PRN ×3 (11:59→21:11)
[2017-09-30] MEDS: PROMETHAZINE/CODEINE ORAL LIQUID 5ml PO PRN ×2 (12:00→21:01)
--- NOTE | 2017-09-30 13:10 | General Surgery Progress Note ---
Subjective Patient reports: feels better, pain is less, tolerating a regular diet, flatus, bowel movement, shortness of breath (acough, although cough is getting less intense and less frequent) Narrative: bloody oozing from umbilical incision controlled with pressure and Lidocaine with Epi last evening. No evidence of recurrent bleeding today. - Vital Signs Last Vital Signs Temp 97.4 F 09/30/17 11:32 Pulse 65 09/30/17 11:32 Resp 16 09/30/17 11:32 BP 131/78 09/30/17 11:32 Pulse Ox 94 09/30/17 11:32 - Laboratory Result Diagrams: 09/30/17 04:19 09/30/17 04:19 - Abnormal Exam Respiratory: other (cough) Abdominal: obese - Normal Exam General: awake, alert Cardiovascular: regular rate Abdominal: BS normo active x4, appropriately tender, incision(s) (stella in tact, to no oozing today) Assessment and Plan (1) Intra-abdominal free air of unknown etiology Current Visit: Yes Status: Acute (2) Influenza A Current Visit: Yes Status: Acute Plan: POD #3 Doing well surgically, eating regular diet, passing flatus and stool. He is more ill from medical standpoint, but improving daily. Will await Hospitalist note regarding discharge from medical standpoint, he could be discharged tomorrow from surgical standpoint. Hospital Course Summary Disclaimer: The visit summary below is not to be considered part of the above Progress Note. Hospital Course: ASSESSMENT 87-year-old gentleman with history for flu who upon radiograph evaluation was found to have a fairly extensive pneumoperitoneum. He was taken emergently to the OR for Diagnostic laparoscopy, possible laparotomy. "Bubbles" were seen within the abdomen, but no perforation of any viscus was identified. He was transferred to CCU postoperatively. 09/27/17: Hospitalist consult The primary concerns for Mr. Oro include respiratory status and anemia, diabetes, and coronary artery disease/cardiomyopathy. 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 We may have difficulty extubating him or he may require prolonged oxygen and/or BiPAP use. We may need to consult Dr. Mcleod. Mr. Oro does not see a labor employment associate on a routine basis. Will start DuoNeb treatment every 4 hours and continue budesonide BID. He has autoimmune hemolytic anemia and the last time he required a blood transfusion during his open heart surgery and took 4 days to find a blood match. May need to contact his data entry email processor, Dr. Gomez, or consider consultation with a local data entry email processor. For diabetes, monitor blood sugars 4 times a day and start low-dose sliding scale insulin with a goal of keeping blood sugars under 180. Check hemoglobin A1c. When diet is advanced, change accuchecks to after-meals. Significant cardiac history including coronary bypass about 2 years ago. Monitor fluid status closely. His refractory manager is Dr. Vance. Labs were done this afternoon, showing mild anemia with a hemoglobin of 12.2. Normal white count at 7.3. Platelets were 293. Sodium 144, potassium 3.9, BUN 25 , creatinine 1.2. Will assess liver function tests. Mr. Oro's son is his DPOA. He has a living will. CODE STATUS: Full code. 09/28/2017 Status post laparoscopy yesterday evening with evidence of air bubbles along the diaphragms but no evidence of bowel perforation-surgery speculates that forceful coughing triggered air under the diaphragms. X-rays reviewed-no evidence of pneumomediastinum although CT abdomen does not extend very high into the chest. Films reviewed again today. Discontinue St catheter, transfer out of ICU; PT/OT consults. Continue IV fluids until oral intake is established. Persistent cough due to influenza, completes 5 day course of Tamiflu this morning. Hemoglobin stable, resume folic acid/B-12; diabetes well controlled, resume metformin tomorrow-continue corrective insulin at present. Mr. Oro's son is his DPOA. He has a living will. CODE STATUS: Full code. 09/29/2017 postop day #2 He's eating a regular diet and is passing flatus and states a small stool. Continues with moist barking cough, No abdominal source of free air in the abdomen found at the time of surgery. Continue with medical management of his other comorbidities. He may be dismissed when medically stable follow-up in Dr. Stanton's office for routine postop in 2 weeks. ADDENDUM: 7pm He had trouble with bloody oozing of the umbilical incision most of the day, seemed to get worse during the afternoon and with coughing. Oozing eventually controlled with pinpoint direct pressure and 1% Lidocaine with Epi. POD #3 Doing well surgically, eating regular diet, passing flatus and stool. He is more ill from medical standpoint, but improving daily. Will await Hospitalist note regarding discharge from medical standpoint, he could be discharged tomorrow from surgical standpoint.
--- NOTE | 2017-09-30 14:10 | Progress Note ---
- Date 09/30/17 Subjective: Acosta was sitting in his chair, watching tv. He has a cough but it's improving. He can't tell if the cough medication has been helpful or not, but he continues to take it. He has minimal pain, if any. His umbilical incision site hasn't been bleeding today. He reports chronic SOA, which is at baseline. He denies chest pain or dizziness. Objective Vital signs: Temperature 97.4 F 09/30/17 11:32 Pulse Rate 65 09/30/17 11:32 Respiratory Rate 16 09/30/17 11:32 Blood Pressure 131/78 09/30/17 11:32 Pulse Oximetry 94 09/30/17 11:32 Height/Weight/BMI: Height 1.75 m Weight 88.2 kg Body Mass Index 29.2 - Constitutional Present: no acute distress, well nourished, well developed - Routine HEENT Exam Head: Present: normocephalic Eye: Absent: conjunctival icterus, scleral injection ENT: Present: mucous membranes moist - Routine Respiratory Exam Present: decreased breath sounds, wheezes - Routine Cardiovascular Exam Present: RRR, S1, S2 - Routine Abdominal Exam Present: soft, normoactive bowel sounds, non distended, non tender - Routine Extremities Exam Present: no edema, pulses intact - Routine Skin Exam Present: intact, dry, warm Comments: dressing to umbilicus is c/d/i - Routine Neurological Exam Present: alert, oriented X3, normal speech - Routine Psychiatric Exam Present: normal affect, normal thought process, cooperative Results - Labs CBC & Chem 7: 09/30/17 04:19 09/30/17 04:19 Assessment and Plan Assessment and Plan: Impression Pneumoperitoneum Influenza A, 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 Hypertension Dyslipidemia. Coronary artery disease. Ischemic cardiomyopathy. Type 2 diabetes, [id number]. Asthma. GERD. Plan Medically stable. Continue Prednisone taper, Duoneb, Budesonide. Maintaining sats on room air. CXR was repeated this morning - pneumoperitoneum resolved; linear opacities noted. H&H & BMP stable. K 4.9. Increase sliding scale to medium dose regimen. Medically ready for discharge on Prednisone taper; need to ensure has has DuoNeb at home. DVT Prophylaxis: SCD's GI Prophylaxis: other (Prilosec) Resuscitation Status: Full Code - Physician Narrative Physician: Chico Davidson MD Narrative: Date: 09/30/17 Time: 1404 Have independently interviewed and examined pt. Chart reviewed. Case discussed with my SCHOOL CROSSING GUARD SUPERVISOR. Care plan developed with my supervision, agree with above. Doing well today. Notes minimal ab pain. No nausea. Passing flatus. No stool today, but had one yesterday. Still having mild cough-report tickle in his throat (has been there ever since his bypass Sx). Breathing feels at baseline. Ambulating well. Lungs: decreased, no distress CV: regular AB: soft nt BS present MSE: awake alert appropriate Plan: Continue with post op care. Encourage ambulation. Clinically improving, hope for discharge to home in near future if continues to do well. Hospital Course Summary Disclaimer: The visit summary below is not to be considered part of the above Progress Note. Hospital Course: ASSESSMENT 87-year-old gentleman with history for flu who upon radiograph evaluation was found to have a fairly extensive pneumoperitoneum. He was taken emergently to the OR for Diagnostic laparoscopy, possible laparotomy. "Bubbles" were seen within the abdomen, but no perforation of any viscus was identified. He was transferred to CCU postoperatively. 09/27/17: Hospitalist consult The primary concerns for Mr. Oro include respiratory status and anemia, diabetes, and coronary artery disease/cardiomyopathy. 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 We may have difficulty extubating him or he may require prolonged oxygen and/or BiPAP use. We may need to consult Dr. Mcleod. Mr. Oro does not see a concrete truck driver on a routine basis. Will start DuoNeb treatment every 4 hours and continue budesonide BID. He has autoimmune hemolytic anemia and the last time he required a blood transfusion during his open heart surgery and took 4 days to find a blood match. May need to contact his leather novelty parts cutter, Dr. Gomez, or consider consultation with a local leather novelty parts cutter. For diabetes, monitor blood sugars 4 times a day and start low-dose sliding scale insulin with a goal of keeping blood sugars under 180. Check hemoglobin A1c. When diet is advanced, change accuchecks to after-meals. Significant cardiac history including coronary bypass about 2 years ago. Monitor fluid status closely. His egg factory worker is Dr. Vance. Labs were done this afternoon, showing mild anemia with a hemoglobin of 12.2. Normal white count at 7.3. Platelets were 293. Sodium 144, potassium 3.9, BUN 25 , creatinine 1.2. Will assess liver function tests. Mr. Oro's son is his DPOA. He has a living will. CODE STATUS: Full code. 09/28/2017 Status post laparoscopy yesterday evening with evidence of air bubbles along the diaphragms but no evidence of bowel perforation-surgery speculates that forceful coughing triggered air under the diaphragms. X-rays reviewed-no evidence of pneumomediastinum although CT abdomen does not extend very high into the chest. Films reviewed again today. Discontinue St catheter, transfer out of ICU; PT/OT consults. Continue IV fluids until oral intake is established. Persistent cough due to influenza, completes 5 day course of Tamiflu this morning. Hemoglobin stable, resume folic acid/B-12; diabetes well controlled, resume metformin tomorrow-continue corrective insulin at present. Mr. Oro's son is his DPOA. He has a living will. CODE STATUS: Full code. 09/29/2017 postop day #2 He's eating a regular diet and is passing flatus and states a small stool. Continues with moist barking cough, No abdominal source of free air in the abdomen found at the time of surgery. Continue with medical management of his other comorbidities. He may be dismissed when medically stable follow-up in Dr. Stanton's office for routine postop in 2 weeks. ADDENDUM: 7pm He had trouble with bloody oozing of the umbilical incision most of the day, seemed to get worse during the afternoon and with coughing. Oozing eventually controlled with pinpoint direct pressure and 1% Lidocaine with Epi. 09/30/17 POD #3 Doing well surgically, eating regular diet, passing flatus and stool. He is more ill from medical standpoint, but improving daily. Will await Hospitalist note regarding discharge from medical standpoint, he could be discharged tomorrow from surgical standpoint. Medically stable. Continue Prednisone taper, Duoneb, Budesonide. Maintaining sats on room air. CXR was repeated this morning - pneumoperitoneum resolved; linear opacities noted. H&H & BMP stable. K 4.9. Increase sliding scale to medium dose regimen. Medically ready for discharge on Prednisone taper; need to ensure has has DuoNeb at home.
[2017-09-30] MEDS: ATORVASTATIN 20 MG TABLET PO SCH (21:00)
[2017-10-01] MEDS: PROMETHAZINE/CODEINE ORAL LIQUID 5ml PO PRN ×2 (05:59→13:25)
[2017-10-01] MEDS: OMEPRAZOLE 20 MG CAPSULE PO SCH (05:59)
[2017-10-01 07:10] VITALS: BP 136/8; RESP 18; TEMP 97.1
[2017-10-01] MEDS: ALBUTEROL/IPRATROPIUM 2.5mg-0.5mg/3ml NEB AEROSOL SCH (07:32)
--- NOTE | 2017-10-01 08:32 | General Surgery Progress Note ---
Subjective Patient reports: no new complaints, feels better, tolerating a regular diet, voiding w/o difficulty, bowel movement (soft brown although small), afebrile, other (still coughing although states he's had a "tickle in his throat" ever since his bypass surgery.) - Vital Signs Last Vital Signs Temp 97.1 F 10/01/17 07:09 Pulse 64 10/01/17 07:09 Resp 18 10/01/17 07:33 BP 136/8 10/01/17 07:09 Pulse Ox 96 10/01/17 07:33 - Laboratory Result Diagrams: 10/01/17 04:24 10/01/17 04:24 - Abnormal Exam Respiratory: wheezes Abdominal: obese - Normal Exam General: awake, alert, oriented Cardiovascular: regular rate Abdominal: BS normo active x4, incision(s) (ecchymosis particularly around the umbilical incision, no active bleeding from the umbilical incision.) Psychiatric: normal affect Assessment and Plan (1) Intra-abdominal free air of unknown etiology Current Visit: Yes Status: Resolved (2) Influenza A Current Visit: Yes Status: Acute (3) Diabetes Current Visit: Yes Status: Chronic Qualifiers: Diabetes mellitus type: type 2 Diabetes mellitus complication status: without complication (4) Hypertension Current Visit: Yes Status: Chronic Qualifiers: Hypertension type: essential hypertension Qualified Code(s): I10 - Essential (primary) hypertension (5) Presence of stent in coronary artery in patient with coronary artery disease Current Visit: Yes Status: Chronic Plan: He is doing well surgically. Umbilical incision is quite ecchymotic as expected. This will dissipate over time. Surgically he is stable for discharge to home with follow-up appointment in Dr. Stanton's office on October 12. Hospitalist note indicates he may be ready for discharge from a medical standpoint in the near future. Any discharge antibiotics were the treatments per hospitalist. Surgical discharge instructions and post op appointment placed in EMR Hospital Course Summary Disclaimer: The visit summary below is not to be considered part of the above Progress Note. Hospital Course: ASSESSMENT 87-year-old gentleman with history for flu who upon radiograph evaluation was found to have a fairly extensive pneumoperitoneum. He was taken emergently to the OR for Diagnostic laparoscopy, possible laparotomy. "Bubbles" were seen within the abdomen, but no perforation of any viscus was identified. He was transferred to CCU postoperatively. 09/27/17: Hospitalist consult The primary concerns for Mr. Oro include respiratory status and anemia, diabetes, and coronary artery disease/cardiomyopathy. 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 We may have difficulty extubating him or he may require prolonged oxygen and/or BiPAP use. We may need to consult Dr. Mcleod. Mr. Oro does not see a traffic control flagger on a routine basis. Will start DuoNeb treatment every 4 hours and continue budesonide BID. He has autoimmune hemolytic anemia and the last time he required a blood transfusion during his open heart surgery and took 4 days to find a blood match. May need to contact his sugar grinder, Dr. Gomez, or consider consultation with a local sugar grinder. For diabetes, monitor blood sugars 4 times a day and start low-dose sliding scale insulin with a goal of keeping blood sugars under 180. Check hemoglobin A1c. When diet is advanced, change accuchecks to after-meals. Significant cardiac history including coronary bypass about 2 years ago. Monitor fluid status closely. His liquefaction plant operator is Dr. Vance. Labs were done this afternoon, showing mild anemia with a hemoglobin of 12.2. Normal white count at 7.3. Platelets were 293. Sodium 144, potassium 3.9, BUN 25 , creatinine 1.2. Will assess liver function tests. Mr. Oro's son is his DPOA. He has a living will. CODE STATUS: Full code. 09/28/2017 Status post laparoscopy yesterday evening with evidence of air bubbles along the diaphragms but no evidence of bowel perforation-surgery speculates that forceful coughing triggered air under the diaphragms. X-rays reviewed-no evidence of pneumomediastinum although CT abdomen does not extend very high into the chest. Films reviewed again today. Discontinue St catheter, transfer out of ICU; PT/OT consults. Continue IV fluids until oral intake is established. Persistent cough due to influenza, completes 5 day course of Tamiflu this morning. Hemoglobin stable, resume folic acid/B-12; diabetes well controlled, resume metformin tomorrow-continue corrective insulin at present. Mr. Oro's son is his DPOA. He has a living will. CODE STATUS: Full code. 09/29/2017 postop day #2 He's eating a regular diet and is passing flatus and states a small stool. Continues with moist barking cough, No abdominal source of free air in the abdomen found at the time of surgery. Continue with medical management of his other comorbidities. He may be dismissed when medically stable follow-up in Dr. Stanton's office for routine postop in 2 weeks. ADDENDUM: 7pm He had trouble with bloody oozing of the umbilical incision most of the day, seemed to get worse during the afternoon and with coughing. Oozing eventually controlled with pinpoint direct pressure and 1% Lidocaine with Epi. 09/30/17 POD #3 Doing well surgically, eating regular diet, passing flatus and stool. He is more ill from medical standpoint, but improving daily. Will await Hospitalist note regarding discharge from medical standpoint, he could be discharged tomorrow from surgical standpoint. Medically stable. Continue Prednisone taper, Duoneb, Budesonide. Maintaining sats on room air. CXR was repeated this morning - pneumoperitoneum resolved; linear opacities noted. H&H & BMP stable. K 4.9. Increase sliding scale to medium dose regimen. Medically ready for discharge on Prednisone taper; need to ensure has has DuoNeb at home. 10/01/2017 POD#4 He is doing well surgically. Umbilical incision is quite ecchymotic as expected. This will dissipate over time. Surgically he is stable for discharge to home with follow-up appointment in Dr. Stanton's office on October 12. Hospitalist note indicates he may be ready for discharge from a medical standpoint in the near future. Any discharge antibiotics were the treatments per hospitalist.
[2017-10-01] MEDS: BENZONATATE 200 MG CAPSULE PO SCH (09:25)
[2017-10-01] MEDS: PredniSONE 20 MG TABLET PO SCH (09:25)
[2017-10-01] MEDS: GUAIFENESIN LA 600 MG TABLET PO SCH (09:26)
[2017-10-01] MEDS: FOLIC ACID 1 MG TABLET PO SCH (09:26)
[2017-10-01] MEDS: CYANOCOBALAMIN (B-12) 500mcg TABLET PO SCH (09:26)
[2017-10-01] MEDS: GEMFIBROZIL 600 MG TABLET PO SCH (09:27)
[2017-10-01] MEDS: DOCUSATE SODIUM 100 MG CAPSULE PO SCH (09:28)
--- NOTE | 2017-10-01 10:35 | Progress Note ---
- Date 10/01/17 Subjective: Mr. Oro is doing quite well and feels ready to go home. He continues to cough but his breathing is doing well. He denies much pain. He denies feeling dizzy. He's tired - hasn't been sleeping well here in the hospital. No n/v and he's been eating well. Objective Vital signs: Temperature 97.1 F 10/01/17 07:09 Pulse Rate 64 10/01/17 07:09 Respiratory Rate 18 10/01/17 07:33 Blood Pressure 136/8 10/01/17 07:09 Pulse Oximetry 96 10/01/17 07:33 Height/Weight/BMI: Height 1.75 m Weight 88.3 kg Body Mass Index 29.2 - Constitutional Present: no acute distress, well nourished, well developed - Routine HEENT Exam Head: Present: normocephalic ENT: Present: mucous membranes moist - Routine Respiratory Exam Comments: course breath sounds b/l with faint occ wheezing and slightly reduced air movement - Routine Cardiovascular Exam Present: RRR, S1, S2 - Routine Abdominal Exam Present: normoactive bowel sounds, distended - Routine Extremities Exam Present: no edema - Routine Musculoskeletal Exam Musculoskeletal: Present: moving extremities well - Routine Skin Exam Present: dry, warm Comments: incisions examined per surgery - Routine Neurological Exam Present: alert, oriented X3 - Routine Psychiatric Exam Present: normal affect, normal thought process, cooperative Results - Labs CBC & Chem 7: 10/01/17 04:24 10/01/17 04:24 Assessment and Plan Assessment and Plan: Impression Pneumoperitoneum - ruled out Hyperglycemia, steroid-induced Influenza A, 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 Hypertension Dyslipidemia. Coronary artery disease. Ischemic cardiomyopathy. Type 2 diabetes, [id number]. Asthma. GERD. Plan Medically stable. Has Rx for DuoNeb and Tessalon Perles at home. Will Rx prednisone taper. Resume Metformin (BG have been elevated). F/U with Dr. Kaiser in 1 week for influenza and hyperglycemia f/u. Surgical instructions and F/U per Dr. Stanton. - Physician Narrative Physician: Chico Davidson MD Narrative: Date: 10/01/17 Time: 1330 Have independently interviewed and examined pt. Chart reviewed. Case discussed with my CHOCOLATE TEMPERER. Care plan developed with my supervision; agree with above. Doing well this afternoon. Breathing well. Eating well. Not having ab pain. Feels ready for discharge to home. Lungs: decrease bilaterally, no distress on RA. MSE: awake alert appropriate Plan: Medically stable for discharge to home. See orders for details. Hospital Course Summary Disclaimer: The visit summary below is not to be considered part of the above Progress Note. Hospital Course: ASSESSMENT 87-year-old gentleman with history for flu who upon radiograph evaluation was found to have a fairly extensive pneumoperitoneum. He was taken emergently to the OR for Diagnostic laparoscopy, possible laparotomy. "Bubbles" were seen within the abdomen, but no perforation of any viscus was identified. He was transferred to CCU postoperatively. 09/27/17: Hospitalist consult The primary concerns for Mr. Oro include respiratory status and anemia, diabetes, and coronary artery disease/cardiomyopathy. 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 We may have difficulty extubating him or he may require prolonged oxygen and/or BiPAP use. We may need to consult Dr. Mcleod. Mr. Oro does not see a visual communications instructor on a routine basis. Will start DuoNeb treatment every 4 hours and continue budesonide BID. He has autoimmune hemolytic anemia and the last time he required a blood transfusion during his open heart surgery and took 4 days to find a blood match. May need to contact his corporate intern, Dr. Gomez, or consider consultation with a local corporate intern. For diabetes, monitor blood sugars 4 times a day and start low-dose sliding scale insulin with a goal of keeping blood sugars under 180. Check hemoglobin A1c. When diet is advanced, change accuchecks to after-meals. Significant cardiac history including coronary bypass about 2 years ago. Monitor fluid status closely. His pitch flaker is Dr. Vance. Labs were done this afternoon, showing mild anemia with a hemoglobin of 12.2. Normal white count at 7.3. Platelets were 293. Sodium 144, potassium 3.9, BUN 25 , creatinine 1.2. Will assess liver function tests. Mr. Oro's son is his DPOA. He has a living will. CODE STATUS: Full code. 09/28/2017 Status post laparoscopy yesterday evening with evidence of air bubbles along the diaphragms but no evidence of bowel perforation-surgery speculates that forceful coughing triggered air under the diaphragms. X-rays reviewed-no evidence of pneumomediastinum although CT abdomen does not extend very high into the chest. Films reviewed again today. Discontinue St catheter, transfer out of ICU; PT/OT consults. Continue IV fluids until oral intake is established. Persistent cough due to influenza, completes 5 day course of Tamiflu this morning. Hemoglobin stable, resume folic acid/B-12; diabetes well controlled, resume metformin tomorrow-continue corrective insulin at present. Mr. Oro's son is his DPOA. He has a living will. CODE STATUS: Full code. 09/29/2017 postop day #2 He's eating a regular diet and is passing flatus and states a small stool. Continues with moist barking cough, No abdominal source of free air in the abdomen found at the time of surgery. Continue with medical management of his other comorbidities. He may be dismissed when medically stable follow-up in Dr. Stanton's office for routine postop in 2 weeks. ADDENDUM: 7pm He had trouble with bloody oozing of the umbilical incision most of the day, seemed to get worse during the afternoon and with coughing. Oozing eventually controlled with pinpoint direct pressure and 1% Lidocaine with Epi. 09/30/17 POD #3 Doing well surgically, eating regular diet, passing flatus and stool. He is more ill from medical standpoint, but improving daily. Will await Hospitalist note regarding discharge from medical standpoint, he could be discharged tomorrow from surgical standpoint. Medically stable. Continue Prednisone taper, Duoneb, Budesonide. Maintaining sats on room air. CXR was repeated this morning - pneumoperitoneum resolved; linear opacities noted. H&H & BMP stable. K 4.9. Increase sliding scale to medium dose regimen. Medically ready for discharge on Prednisone taper; need to ensure has has DuoNeb at home. 10/01/2017 POD#4 He is doing well surgically. Umbilical incision is quite ecchymotic as expected. This will dissipate over time. Surgically he is stable for discharge to home with follow-up appointment in Dr. Stanton's office on October 12. Hospitalist note indicates he may be ready for discharge from a medical standpoint in the near future. Any discharge antibiotics were the treatments per hospitalist.
--- NOTE | 2017-10-01 12:04 | Discharge Summary ---
Discharge Information Date of admission: 09/27/17 17:30 Attending Physician: Baljit Stanton MD Primary care physician: Sana Kaiser MD Consults: Hospitalist team Medical management - Discharge Diagnosis (1) Intra-abdominal free air of unknown etiology Status: Resolved (2) Influenza A Status: Acute (3) Diabetes Status: Chronic (4) Hypertension Status: Chronic (5) Presence of stent in coronary artery in patient with coronary artery disease Status: Chronic - Laboratory Labs: 10/01/17 04:24 10/01/17 04:24 - Radiology Radiology: cxr 09/30/2017 IMPRESSION: 1. ill-defined linear opacities are seen posteriorly at the lung base on the lateral projection which may represent atelectasis rather than infiltrate. 2. Interval resolution or near resolution of the previously seen pneumoperitoneum. CT abd/pelvis 09/27/2017 Impression: 1. Patient demonstrates free intraperitoneal air. The exact source is somewhat indeterminant although there are numerous diverticula in the distal descending and sigmoid colon and there are some small air collections near the duodenal C-loop. 2. Considerable debris in the gallbladder although no biliary ductal dilatation seen. 3. Findings called ordering ER clinician when study provided as a critical result. - History of Present Illness Chief complaint: Pneumoperitoneum HPI: Per Dr. Stanton BRIEF HISTORY/INDICATIONS Mr. Oro is an 87-year-old gentleman who I was asked to see today through the Emergency Room as a result of a finding of marked pneumoperitoneum noted upon radiographic evaluation. The patient was seen earlier today and felt to have the flu. He has had a significant amount of coughing over the course of the last couple of weeks. Apparently he has tested positive for influenza A in the recent past through the ER. Earlier this year he had "stomach flu" per his report. On CT scan the patient was found to have a fair amount of free air within the abdomen. Upon examination the patient did not have marked abdominal tenderness. From a laboratory standpoint he did not have a component of leukocytosis. Nonetheless, given this marked pneumoperitoneum noted upon CT scan, it was my recommendation that we should proceed with surgical evaluation. Hospital Course This is a general summary of the patient's hospital course. For more details refer to the complete medical record. Hospital course: ASSESSMENT 87-year-old gentleman with history for flu who upon radiograph evaluation was found to have a fairly extensive pneumoperitoneum. He was taken emergently to the OR for Diagnostic laparoscopy, possible laparotomy. "Bubbles" were seen within the abdomen, but no perforation of any viscus was identified. He was transferred to CCU postoperatively. 09/27/17: Hospitalist consult The primary concerns for Mr. Oro include respiratory status and anemia, diabetes, and coronary artery disease/cardiomyopathy. 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 We may have difficulty extubating him or he may require prolonged oxygen and/or BiPAP use. We may need to consult Dr. Mcleod. Mr. Oro does not see a government teacher on a routine basis. Will start DuoNeb treatment every 4 hours and continue budesonide BID. He has autoimmune hemolytic anemia and the last time he required a blood transfusion during his open heart surgery and took 4 days to find a blood match. May need to contact his patient portal representative, Dr. Gomez, or consider consultation with a local patient portal representative. For diabetes, monitor blood sugars 4 times a day and start low-dose sliding scale insulin with a goal of keeping blood sugars under 180. Check hemoglobin A1c. When diet is advanced, change accuchecks to after-meals. Significant cardiac history including coronary bypass about 2 years ago. Monitor fluid status closely. His party plan demonstrator is Dr. Vance. Labs were done this afternoon, showing mild anemia with a hemoglobin of 12.2. Normal white count at 7.3. Platelets were 293. Sodium 144, potassium 3.9, BUN 25 , creatinine 1.2. Will assess liver function tests. Mr. Oro's son is his DPOA. He has a living will. CODE STATUS: Full code. 09/28/2017 Status post laparoscopy yesterday evening with evidence of air bubbles along the diaphragms but no evidence of bowel perforation-surgery speculates that forceful coughing triggered air under the diaphragms. X-rays reviewed-no evidence of pneumomediastinum although CT abdomen does not extend very high into the chest. Films reviewed again today. Discontinue St catheter, transfer out of ICU; PT/OT consults. Continue IV fluids until oral intake is established. Persistent cough due to influenza, completes 5 day course of Tamiflu this morning. Hemoglobin stable, resume folic acid/B-12; diabetes well controlled, resume metformin tomorrow-continue corrective insulin at present. Mr. Oro's son is his DPOA. He has a living will. CODE STATUS: Full code. 09/29/2017 postop day #2 He's eating a regular diet and is passing flatus and states a small stool. Continues with moist barking cough, No abdominal source of free air in the abdomen found at the time of surgery. Continue with medical management of his other comorbidities. He may be dismissed when medically stable follow-up in Dr. Stanton's office for routine postop in 2 weeks. ADDENDUM: 7pm He had trouble with bloody oozing of the umbilical incision most of the day, seemed to get worse during the afternoon and with coughing. Oozing eventually controlled with pinpoint direct pressure and 1% Lidocaine with Epi. 09/30/17 POD #3 Doing well surgically, eating regular diet, passing flatus and stool. He is more ill from medical standpoint, but improving daily. Will await Hospitalist note regarding discharge from medical standpoint, he could be discharged tomorrow from surgical standpoint. Medically stable. Continue Prednisone taper, Duoneb, Budesonide. Maintaining sats on room air. CXR was repeated this morning - pneumoperitoneum resolved; linear opacities noted. H&H & BMP stable. K 4.9. Increase sliding scale to medium dose regimen. Medically ready for discharge on Prednisone taper; need to ensure has has DuoNeb at home. 10/01/2017 POD#4 He is doing well surgically. Umbilical incision is quite ecchymotic as expected. This will dissipate over time. Stable for discharge per Hospitalist team and Dr. Stanton DC to home with follow up with Dr. Gong in [address] Stanton's office in 10 days -2 weeks. Time spent with patient: 25 - 35 minutes Resuscitation Status: Full Code Discharge Plan - Med Rec/Dispo Referrals/Follow Up: Sana Kaiser MD [Family Provider] - 1 Week (influenza and hyperglycemia f/u) Miriam Beltre APRN [Advanced Practice Nurse] - 10/12/17 10:15 am Prescriptions: New predniSONE [Prednisone] 10 mg PO WB #12 tab Guaifenesin LA [Mucinex LA] 600 mg PO BID PRN tab PRN Reason: Cough Oxycodone *IR* [Roxicodone *Ir*] 5 mg PO Q5H PRN #25 tab PRN Reason: Pain Continue Albuterol Sulfate [Proair Hfa] 2 puff INH Q6H PRN PRN Reason: Shortness Of Air/Wheezing Albuterol/Ipratropium [Duoneb] 3 ml INH QID PRN PRN Reason: Asthma Budesonide 1 vial AEROSOL BID Promethazine + Cod Liq [Phenergan + Codeine] 5 ml PO Q6H PRN PRN Reason: Cough Bisoprolol [Zebeta] 2.5 mg PO DAILY Acetaminophen 650 mg PO Q4H PRN PRN Reason: Pain Cyanocobalamin (Vitamin B-12) [Vitamin B-12] 1 tab PO DAILY Docusate Sodium [Colace] 1 cap PO BID Folic Acid [Folate] 1 tab PO DAILY Gemfibrozil [Lopid] 600 mg PO BID Benzonatate [Tessalon Perles] 200 mg PO TID PRN #20 cap PRN Reason: Cough PEG 3350 17gm PACKET [Miralax] 17 gm PO DAILY PRN #10 PRN Reason: Constipation Budesonide Flexhaler [Pulmicort 180 Mcgflexhaler] 1 - 2 puff INH BID #1 inhaler Atorvastatin Calcium 20 mg PO DAILY #0 tab Ferrous Gluconate 324 mg PO BIDWM #0 tab Metformin XR [Glucophage Xr] 1,000 mg PO WS Omeprazole [Prilosec] 20 mg PO DAILY Discontinued Oseltamivir Cap [Tamiflu] 75 mg PO BID #10 cap PredniSONE [Deltasone] 60 mg PO WB #12 tab - Disposition 01 Discharged Home, Self-Care
[2017-10-01 12:24] VITALS: O2SAT 93
[2017-10-01 13:46] VITALS: PULSE 71
--- NOTE | 2017-10-01 15:24 | Progress Note ---
DATE OF SERVICE 10/01/2017 FINDINGS Mr. Oro was seen earlier today on rounds. He denied any element of abdominal pain. He still had fairly persistent cough per his report. EXAM ABDOMEN: Soft, completely nontender. There was some slight ecchymosis surrounding the periumbilical incision site but no evidence for active bleeding. ASSESSMENT 87-year-old gentleman with presentation of pneumoperitoneum noted upon CT scan. Status post diagnostic laparoscopy with no evidence for perforated viscus. Patient currently doing well. Patient with respiratory influenza, making improvement. PLAN The patient will be discharged today to home. Please refer to discharge orders if detail needed. NIKIA
--- NOTE | 2017-10-02 14:50 | Right on Track Program ---
Right on Track Program Date of Discharge: 10/01/17 Home Medications: Home Medications Medication Instructions Recorded Confirmed Atorvastatin Calcium 20 mg PO DAILY #0 tab 01/09/16 09/27/17 Budesonide Flexhaler [Pulmicort 1 - 2 puff INH BID #1 inhaler 01/09/16 09/27/17 180 Mcgflexhaler] Ferrous Gluconate 324 mg PO BIDWM #0 tab 01/09/16 09/27/17 Albuterol Sulfate [Proair Hfa] 2 puff INH Q6H PRN 04/21/17 09/27/17 Albuterol/Ipratropium [Duoneb] 3 ml INH QID PRN 04/21/17 09/27/17 Budesonide 1 vial AEROSOL BID 04/21/17 09/27/17 Acetaminophen 650 mg PO Q4H PRN 09/23/17 09/27/17 Bisoprolol [Zebeta] 2.5 mg PO DAILY 09/23/17 09/27/17 Cyanocobalamin (Vitamin B-12) 1 tab PO DAILY 09/23/17 09/27/17 [Vitamin B-12] Docusate Sodium [Colace] 1 cap PO BID 09/23/17 09/27/17 Folic Acid [Folate] 1 tab PO DAILY 09/23/17 09/27/17 Gemfibrozil [Lopid] 600 mg PO BID 09/23/17 09/27/17 Metformin XR [Glucophage Xr] 1,000 mg PO WS 09/23/17 09/27/17 Omeprazole [Prilosec] 20 mg PO DAILY 09/23/17 09/27/17 Promethazine + Cod Liq [Phenergan 5 ml PO Q6H PRN 09/23/17 09/27/17 + Codeine] Previous Rx's Medication Instructions Recorded Benzonatate [Tessalon Perles] 200 mg PO TID PRN #20 cap 09/23/17 Guaifenesin LA [Mucinex LA] 600 mg PO BID PRN tab 10/01/17 Oxycodone *IR* [Roxicodone *Ir*] 5 mg PO Q5H PRN #25 tab 10/01/17 PEG 3350 17gm PACKET [Miralax] 17 gm PO DAILY PRN #10 01/26/18 predniSONE [Prednisone] 10 mg PO WB #12 tab 10/01/17 - Right on Track Program 24 hour phone call Date: 10/02/17 Right on Track Program: 24 Hour Follow-Up Discharge Summary Received: Yes Care Plan Received: Yes Follow Up: Follow Up Appointment Scheduled Education: Diagnosis Education Reviewed Referral: Primary Care Physician Comments: I spoke with Mr. Oro on 10/02/17. He was doing well. His breathing is the best it's been in a long time, and his cough has been under better control as well. He was able to sleep well last night (sleep was elusive while hospitalized ). He didn't have any problems getting Rx; he's been taking Prednisone and breathing treatments. He states that his umbilical incision seems to be doing well. He denies constipation and reports that his bowels are moving. He has upcoming appointments with both Dr. Kaiser and with Surinder Beltre. Recommendations For Follow-up: 1. F/U with providers as planned 2. Continue to follow with weekly phone calls
== END 2017-10-01 13:50 | disposition home or self-care (01) | DRG 336 ==
LOC: ED 14:36 → SRG 17:30 → CCU 18:28 → SRG 09-28 12:13
PROVIDERS: ADMIT Surgery; ATTEND Surgery